=== PATIENT | female | born 1940 | race Caucasian/White ===

== ENCOUNTER → 2017-01-27 | Outpatient (CLI) | payer MEDICARE ==
--- NOTE | 2017-01-27 13:19 | CT ---
EXAMINATION TYPE: CT chest wo con DATE OF EXAM: 01/27/2017 12:59 PM COMPARISON: 07/18/2015 HISTORY: Follow up nodule CT DLP: 136.[address] of the chest was performed with lung and mediastinal window settings submitted. The la ck of contrast limits evaluation of the vascular, mediastinal and parenchymal structures including th e upper abdomen. LUNGS: Again noted are small scattered subpleural nodules bilaterally. Right upper lobe nodule measur es 3.5 mm image 25. Left lower lobe nodule measures 5 mm image 25. Stable minimal right upper lobe pl eural thickening. Subpleural fibrosis noted as well. No suspicious nodules or masses identified. MEDIASTINUM/GEMA: Thoracic aorta is of normal caliber with limited evaluation given lack of contrast . The heart is enlarged. No evidence for mediastinal mass. No lymph nodes greater than 1cm. UPPER ABDOMEN: No significant abnormality is seen. OTHER: No significant other abnormality. IMPRESSION: 1. Stable pleural and subpleural nodularity. 2. 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
== END | disposition home or self-care (01) ==
LOC: RADCTMAIN 12:31
PROVIDERS: ATTEND Internal Medicine Pulmonary Disease
DX: J44.9 Chronic obstructive pulmonary disease, unspecified (principal); J84.10 Pulmonary fibrosis, unspecified; J98.4 Other disorders of lung
CPT/HCPCS: 71250

== ENCOUNTER → 2017-09-29 | Outpatient (CLI) | payer MEDICARE ==
--- NOTE | 2017-09-30 10:47 | MM ---
Reason for exam: screening (asymptomatic). Last mammogram was performed 2 years and 6 months ago. History: Patient is postmenopausal. Benign right mammotome panel of the right breast, January 24, 2012. Physical Findings: A clinical breast exam by your physician is recommended on an annual basis and results should be correlated with mammographic findings. MG 3D Screening Mammo W/Cad Bilateral CC and MLO view(s) were taken. Prior study comparison: April 04, 2015, bilateral MG screening mammo w CAD. April 11, 2014, bilateral MG screening mammo w CAD. The breast tissue is heterogeneously dense. This may lower the sensitivity of mammography. Finding: There are linear calcifications in both breasts. There is no discrete abnormality. No significant changes in finding since April 04, 2015 and April 11, 2014. ASSESSMENT: Benign, BI-RAD 2 RECOMMENDATION: Routine screening mammogram of both breasts in 1 year.
== END | disposition home or self-care (01) ==
LOC: RADMAMWWP 13:03
PROVIDERS: ATTEND Family Medicine
DX: Z12.31 Encounter for screening mammogram for malignant neoplasm of breast (principal)
CPT/HCPCS: 77063; G0202

== ENCOUNTER → 2018-01-19 | Outpatient (CLI) | payer MEDICARE ==
--- NOTE | 2018-01-19 12:56 | CT ---
EXAMINATION TYPE: CT chest wo con DATE OF EXAM: 01/19/2018 COMPARISON: Prior CT chest 01/27/2017 HISTORY: Patient has no complaints at time of service. Follow up study for multiple known lung nodul es. CT DLP: 372 mGycm. Automated Exposure Control for Dose Reduction was Utilized. TECHNIQUE: CT scan of the thorax is performed without IV contrast. FINDINGS: Lack of contrast could compromise sensitivity. LUNGS: The lungs are remarkable for interstitial changes as on prior exam, there is interlobular sept al pleural thickening present peripherally with some minimal subpleural nodularity as on prior exam. There is no pleural effusion or pneumothorax seen. The tracheobronchial tree is patent. MEDIASTINUM: Lack of IV contrast is noted to limit evaluation for mediastinal and especially hilar ad enopathy. There are no definitive greater than 1 cm hilar or mediastinal lymph nodes. No cardiomega ly or pericardial effusion is seen. OTHER: Small hiatal hernia again noted. Multiple varices present in the left upper quadrant. Calcific ations noted within the spleen. There are coronary artery calcifications present. IMPRESSION: Similar findings to prior exam, no significant interval change in patient's subpleural no dularity and there is interstitial lung disease. Comparison is suspected in left upper quadrant, conrad elate for portal hypertension. Noncontrast exam.
== END | disposition home or self-care (01) ==
LOC: RADCTMAIN 10:23
PROVIDERS: ATTEND Internal Medicine Pulmonary Disease
DX: J98.4 Other disorders of lung (principal); R91.8 Other nonspecific abnormal finding of lung field; R06.02 Shortness of breath
CPT/HCPCS: 71250

== ENCOUNTER → 2018-10-15 | Outpatient (CLI) | payer MEDICARE ==
--- NOTE | 2018-10-16 15:28 | MM ---
Reason for exam: screening (asymptomatic). Last mammogram was performed 1 year and 1 month ago. History: Patient is postmenopausal. Benign right mammotome panel of the right breast, January 24, 2012. Physical Findings: A clinical breast exam by your physician is recommended on an annual basis and results should be correlated with mammographic findings. MG Screening Mammo w CAD Bilateral CC and MLO view(s) were taken. XCCL view(s) were taken of the left breast. Prior study comparison: September 29, 2017, bilateral MG 3d screening mammo w/cad. April 04, 2015, bilateral MG screening mammo w CAD. There are scattered fibroglandular densities. Calcifications bilaterally. Focal asymmetry left MLO inferior, new. This finding is changed when compared with previous exams. ASSESSMENT: Incomplete: need additional imaging evaluation, BI-RAD 0 RECOMMENDATION: Special view mammogram of the left breast. If lesion persists on supplemental views, image directed ultrasound is recommended. [facility] will attempt to contact patient to return for supplemental views and ultrasound if indicated.
== END | disposition home or self-care (01) ==
LOC: RADMAMWWP 12:26
PROVIDERS: ATTEND Family Medicine
DX: Z12.31 Encounter for screening mammogram for malignant neoplasm of breast (principal)
CPT/HCPCS: 77067

== ENCOUNTER → 2018-11-13 | Outpatient (CLI) | payer MEDICARE ==
--- NOTE | 2018-11-15 09:02 | MM ---
Reason for exam: additional evaluation requested from abnormal screening. Last mammogram was performed 1 month ago. History: Patient is postmenopausal. Benign right mammotome panel of the right breast, January 24, 2012. Physical Findings: Nurse did not find any significant physical abnormalities on exam. MG 3D Work Up W/Cad LT ML, spot compression MLO, and spot compression ML view(s) were taken of the left breast. Prior study comparison: October 15, 2018, bilateral MG screening mammo w CAD. September 29, 2017, bilateral MG 3d screening mammo w/cad. There are scattered fibroglandular densities. There are benign-appearing left breast calcifications. The previously seen left lower inner quadrant focal asymmetry relates to a tortures overlapping vessel on additional views. These results were verbally communicated with the patient and result sheet given to the patient on 11/13/18. ASSESSMENT: Benign, BI-RAD 2 RECOMMENDATION: Return to routine screening mammogram schedule for both breasts.
== END | disposition home or self-care (01) ==
LOC: RADMAMWWP 08:48
PROVIDERS: ATTEND Family Medicine
DX: R92.8 Other abnormal and inconclusive findings on diagnostic imaging of breast (principal)
CPT/HCPCS: 77065; G0279; 77061

== ENCOUNTER → 2019-02-12 | Outpatient (CLI) | payer MEDICARE ==
[2019-02-12 10:05] LABS: Blood Urea Nitrogen 19 mg/dL (7-17)
--- NOTE | 2019-02-12 11:39 | CT ---
EXAMINATION TYPE: CT abdomen pelvis w con DATE OF EXAM: 02/12/2019 HISTORY: Abdominal pain, constipation CT DLP: 410.40mGycm Automated Exposure Control for Dose Reduction was Utilized. CONTRAST: CT scan of the abdomen and pelvis is performed with IV Contrast, patient injected with 100 ml mL of I sovue 300. COMPARISON: None. FINDINGS: LUNG BASES: Early fibrosis is seen in a subpleural reticulation within the lung bases. Mild emphysema tous changes are also present. Severe coronary calcifications are seen. LIVER/GB: The liver is of unremarkable enhancement and morphology. No intrahepatic biliary ductal dil atation is seen. Gallbladder appears surgically absent. PANCREAS: No significant abnormality is seen. SPLEEN: There is a punctate benign splenic granuloma. ADRENALS: No significant abnormality is seen. KIDNEYS: Bilateral extrarenal pelvises sees are seen. Kidneys enhance and excrete symmetrically witho ut hydronephrosis. BOWEL: Large degree fecal stasis is present. No evidence of dilated bowel to suggest obstruction. The re is some narrowing in caliber of the descending colon that may relate to colonic spasm as no obstru ction is seen however if there is further concern colonoscopy could be performed.. UTERUS/ADNEXA: Surgically absent. LYMPH NODES: No greater than 1cm abdominal or pelvic lymph nodes are appreciated. OSSEOUS STRUCTURES: Sclerotic lesion of the right femoral head although is nonspecific likely relates to benign bone island. This appears solitary. Facet arthropathy is seen throughout the spine. Grade 1 anterolisthesis is seen of L4 on L5. No pars interarticularis defects are noted. This is likely due to facet hypertrophy. Schmorl's node deformity is seen of L2 and L1 with mild compression deformitie s. The compression deformity of L2 is stable from 2014. L1 has occurred in the interim. OTHER: Small fat filled supraumbilical hernia is seen approximately 2 cm above the umbilicus with a w kailee neck measuring 1.7 cm. IMPRESSION: 1. Large burden colonic fecal stasis in keeping with the patient's provided history of constipation. Additionally there is focal narrowing of the descending colon in a long segment that may relate to co lonic spasm although colonoscopy could be considered if not recently performed. 2. Compression deformities of L1 and L2. L2 is stable from 2014 and L1 has occurred in the interim. C orrelate with point tenderness.
== END | disposition home or self-care (01) ==
LOC: RADCTMAIN 09:17
PROVIDERS: ATTEND Family Medicine
DX: K56.699 Other intestinal obstruction unspecified as to partial versus complete obstruction (principal); R19.5 Other fecal abnormalities; K43.6 Other and unspecified ventral hernia with obstruction, without gangrene; Z88.2 Allergy status to sulfonamides; Z88.8 Allergy status to other drugs, medicaments and biological substances
CPT/HCPCS: 82565; 84520; 74177; 36415; Q9967

== ENCOUNTER 2019-04-07 07:36 | Day surgery (SDC) | payer MEDICARE ==
[2019-04-05 11:45] VITALS: BMI 22.4
[~2019-04-07 07:36] MED LIST: LACTATED RINGERS 1,000 ML IV SCH
[2019-04-07 08:25] VITALS: TEMP 97.2
[2019-04-07 08:32] LABS: Glucose,Whole Blood 84 mg/dL (75-99)
[2019-04-07] MEDS ORDERED: PROPOFOL 10 MG/ML 20 ML VIAL IV ONE (08:34)
[2019-04-07 08:58] VITALS: RESP 16
[2019-04-07 09:16] VITALS: BP 103/68; PULSE 75
--- NOTE | 2019-04-07 09:26 | P.PCN ---
Date of Procedure: 04/07/19 Procedure(s) Performed: BRIEF HISTORY: Patient is a 78-year-old pleasant white female, scheduled for an elective colonoscopy as a part of evaluation change in bowel habits for the last 3 months duration. She is having alternating diarrhea and constipation. PROCEDURE PERFORMED: Colonoscopy with biopsy. PREOPERATIVE DIAGNOSIS: Change in bowel habits. IV sedation per Anesthesia. PROCEDURE: After informed consent was obtained, the patient, was brought into the endoscopy unit. IV sedation was administered by Anesthesia under continuous monitoring. Digital rectal examination was normal. Initially the Olympus CF-160 flexible video colonoscope was then inserted in the rectum, gradually advanced into the cecum without any difficulty. Careful examination was performed as the scope was gradually being withdrawn. Ileocecal valve and the appendiceal orifice were visualized and appeared normal. Prep was excellent. Mucosa of the cecum, ascending colon, transverse colon, descending colon, sigmoid colon, and rectum appeared normal. Retroflexion was performed in the rectum and no lesions were seen. Random biopsies were done from ascending and descending colon to rule out metastatic/collagenous colitis. The patient tolerated the procedure well. IMPRESSION: Normal-appearing colon from rectum to cecum with no evidence of colitis or colorectal neoplasia. RECOMMENDATIONS: Findings of this examination were discussed with the patient as well as a family. She was advised to follow up the biopsy results. She was advised to start on MiraLAX [id number] as needed and increase fiber in the diet. She'll be seen in office in a month..
== END 2019-04-07 09:35 | disposition home or self-care (01) ==
LOC: ORWHC2ENDO 07:36
PROVIDERS: ATTEND Internal Medicine Gastroenterology
DX: A04.72 Enterocolitis due to Clostridium difficile, not specified as recurrent (principal); Z88.2 Allergy status to sulfonamides; I10 Essential (primary) hypertension; E78.5 Hyperlipidemia, unspecified; Z79.899 Other long term (current) drug therapy
CPT/HCPCS: 88305; 45380; J2704

== ENCOUNTER → 2019-11-25 | Outpatient (CLI) | payer MEDICARE ==
--- NOTE | 2019-11-25 13:17 | CT ---
EXAMINATION TYPE: CT abdomen pelvis w con DATE OF EXAM: 11/25/2019 COMPARISON: February 12, 2019 HISTORY: Generalized abdominal pain, constipation. CT DLP: 790 mGycm CONTRAST: CT scan of the abdomen and pelvis is performed with Oral Contrast and with IV Contrast, patient injec justo with 80 mL of Isovue M300. FINDINGS: LUNG BASES-: No visible nodule. No infiltrate. LIVER/GB: No calcified gallstones. No space occupying hepatic lesion. Biliary tree is of normal ca liber. PANCREAS: No inflammation. No distinct mass. SPLEEN: No splenic enlargement. No lesion seen. Perisplenic varices noted. ADRENALS: No nodule. No thickening. KIDNEYS/BLADDER: No hydronephrosis. No nephrolithiasis. No distinct renal mass. Urinary bladder g rossly unremarkable. BOWEL: Normal appendix. Normal bowel caliber. No inflammation. GENITAL ORGANS: No gross abnormality. LYMPH NODES: No greater than 1cm abdominal or pelvic lymph nodes are appreciated. AORTA: No significant abnormality. OSSEOUS STRUCTURES: Chronic compression deformities are seen throughout the upper lumbar spine. Degen erative changes noted as well. OTHER: Fat-containing umbilical hernia measuring 3.4 cm. IMPRESSION: 1. Fat-containing umbilical hernia measuring 3.4 cm. 2.Perisplenic varices noted.
== END | disposition home or self-care (01) ==
LOC: RADCTMAIN 11:16
PROVIDERS: ATTEND Family Medicine
DX: K42.9 Umbilical hernia without obstruction or gangrene (principal); I86.8 Varicose veins of other specified sites; E11.9 Type 2 diabetes mellitus without complications; Z88.2 Allergy status to sulfonamides; Z88.8 Allergy status to other drugs, medicaments and biological substances
CPT/HCPCS: 82565; 84520; 74177; 36415; Q9967 ×2

== ENCOUNTER → 2019-12-01 | Outpatient (CLI) | payer MEDICARE ==
--- NOTE | 2019-12-02 11:32 | MM ---
Reason for exam: screening (asymptomatic). Last mammogram was performed 1 year and 1 month ago. History: Patient is postmenopausal. Benign right mammotome panel of the right breast, January 24, 2012. Physical Findings: A clinical breast exam by your physician is recommended on an annual basis and results should be correlated with mammographic findings. MG 3D Screening Mammo W/Cad Bilateral CC and MLO view(s) were taken. Prior study comparison: November 13, 2018, left breast MG 3d work up w/cad LT. October 15, 2018, bilateral MG screening mammo w CAD. There are scattered fibroglandular densities. Finding: There are typically benign round, linear calcifications in the anterior position of both breasts. Previous mammotome biopsy in the right breast. There is no discrete abnormality. ASSESSMENT: Benign, BI-RAD 2 RECOMMENDATION: Routine screening mammogram of both breasts in 1 year.
== END | disposition home or self-care (01) ==
LOC: RADMAMWWP 13:27
PROVIDERS: ATTEND Family Medicine
DX: Z12.31 Encounter for screening mammogram for malignant neoplasm of breast (principal)
CPT/HCPCS: 77063; 77067

== ENCOUNTER → 2019-12-03 | Outpatient (CLI) | payer MEDICARE ==
[2019-12-03 11:52] LABS: Creatinine 24 Hour,Urine 569.5 mg/24hr (800.0-1800.0)
[2019-12-03 12:20] LABS: Total Volume 24 Hour,Urine 2125 mls (250-2400)
[2019-12-03 12:27] LABS: Total Protein 24 Hour,Urine 383 mg/24hr (42.0-225.0)
== END | disposition home or self-care (01) ==
LOC: LABWHC1 09:10
PROVIDERS: ATTEND Family Medicine
DX: N18.3 Chronic kidney disease, stage 3 (moderate) (principal)
CPT/HCPCS: 36415; 81050; 82575; 84156

== ENCOUNTER → 2019-12-09 | Outpatient (CLI) | payer MEDICARE ==
--- NOTE | 2019-12-09 15:19 | US ---
EXAMINATION TYPE: US kidneys/renal and bladder DATE OF EXAM: 12/09/2019 COMPARISON: NONE CLINICAL HISTORY: N18.3 Chronic kidney disease stage III. EXAM MEASUREMENTS: Right Kidney: 9.6 x 4.8 x 4.8 cm Left Kidney: 9.7 x 4.5 x 4.6 cm Right Kidney: No hydronephrosis or masses seen Left Kidney: Superior pole obscured by bowel gas, no hydro or masses seen Bladder: wnl There is no evidence for hydronephrosis at this point in time. No nephrolithiasis is seen. No jayda s are identified. The urinary bladder is anechoic. Bilateral ureteral jets are seen. IMPRESSION: Obscuration of the right superior pole the kidney by overlying bowel gas. In the remainde r of the kidneys there is no evidence of hydronephrosis, nephrolithiasis or suspicious mass.
== END | disposition home or self-care (01) ==
LOC: RADUSWWP 14:01
PROVIDERS: ATTEND Family Medicine
DX: N18.3 Chronic kidney disease, stage 3 (moderate) (principal); Z88.2 Allergy status to sulfonamides; Z88.8 Allergy status to other drugs, medicaments and biological substances
CPT/HCPCS: 76770

== ENCOUNTER 2019-12-13 06:58 | Day surgery (SDC) | payer MEDICARE ==
[2019-12-08 16:29] VITALS: BMI 20.7
[2019-12-13 07:16] VITALS: TEMP 97.7
[2019-12-13 07:28] LABS: Glucose,Whole Blood 158 mg/dL (75-99)
[2019-12-13] MEDS ORDERED: PROPOFOL 10 MG/ML 20 ML VIAL IV ONE (07:32)
[2019-12-13] MEDS ORDERED: LIDOCAINE 1% INJ 10MG/ML (20 ML MDV) ONE (07:32)
--- NOTE | 2019-12-13 08:01 | P.PCN ---
Date of Procedure: 12/13/19 Description of Procedure: BRIEF HISTORY: Patient is a 79-year-old female presents for outpatient esophagogastroduodenoscopy for evaluation of symptoms of abdominal pain and unintentional weight loss. She reports decreased oral intake and some weight loss recently. She does have a history of NSAID use. PROCEDURE PERFORMED: Esophagogastroduodenoscopy with biopsy. PREOPERATIVE DIAGNOSIS: Abdominal pain, unintentional weight loss. ESTIMATED BLOOD LOSS: Minimal. IV sedation per anesthesia. PROCEDURE: After informed consent was obtained, the patient was brought into the endoscopy unit. IV sedation was administered by Anesthesia under continuous monitoring. Initially the Olympus GIF-190 video endoscope was inserted into the mouth. Esophagus intubated without any difficulty. It was gradually advanced into the stomach and duodenum and carefully examined. The bulb and the second part of the duodenum appeared normal, with biopsies taken to rule out celiac sprue. The scope at this time was withdrawn to the stomach, adequately insufflated with air, and upon careful examination, mucosa of the antrum, body, cardia and the fundus appeared normal, except for some mild scattered erythema in the antrum and body suggestive of mild gastritis with biopsies taken. The scope was then withdrawn into the esophagus. The GE junction was located at 33 cm from the incisors, with biopsies of the GE junction taken to rule out reflux esophagitis. A small 1 cm hiatal hernia noted. The esophagus appeared normal. There were no erosions or ulcerations seen and the patient tolerated the procedure well. IMPRESSION: 1. Mild gastritis antrum and body, biopsied. 2. Biopsies of the duodenum and GE junction. 3. No ulcers, masses or other pathology noted. RECOMMENDATIONS: The findings of this examination were discussed with the patient and her sister. Okay to resume diet. Okay to resume medications. Await pathology from biopsies..
[2019-12-13 08:30] VITALS: BP 188/78; PULSE 68; RESP 18
== END 2019-12-13 08:44 | disposition home or self-care (01) ==
LOC: ORWHC2ENDO 06:58
PROVIDERS: ATTEND Internal Medicine
DX: K29.50 Unspecified chronic gastritis without bleeding (principal); K20.0 Eosinophilic esophagitis; K44.9 Diaphragmatic hernia without obstruction or gangrene; E11.9 Type 2 diabetes mellitus without complications; E78.5 Hyperlipidemia, unspecified; K08.409 Partial loss of teeth, unspecified cause, unspecified class; M19.90 Unspecified osteoarthritis, unspecified site; Z88.8 Allergy status to other drugs, medicaments and biological substances; Z88.2 Allergy status to sulfonamides; Z79.899 Other long term (current) drug therapy; Z90.49 Acquired absence of other specified parts of digestive tract; Z90.710 Acquired absence of both cervix and uterus; Z96.651 Presence of right artificial knee joint; Z98.42 Cataract extraction status, left eye; Z98.41 Cataract extraction status, right eye; Z98.890 Other specified postprocedural states; Z80.1 Family history of malignant neoplasm of trachea, bronchus and lung
CPT/HCPCS: 88305; 43239; J2001; J2704

== ENCOUNTER 2020-04-04 08:17 | Emergency (ER) | payer MEDICARE ==
[2020-04-04 08:22] VITALS: RESP 18; TEMP 98
[2020-04-04 09:13] LABS: Basophils # (A) 0.1 k/uL (0-0.2); Basophils % (A) 1 %; Eosinophils # (A) 0.1 k/uL (0-0.7); Eosinophils % (A) 1 %; HCT 38.7 % (34.0-46.0); HGB 12.6 gm/dL (11.4-16.0); Lymphocytes # (A) 1.4 k/uL (1.0-4.8); Lymphocytes % (A) 19 %; MCH 28.5 pg (25.0-35.0); MCHC 32.7 g/dL (31.0-37.0); MCV 87.3 fL (80.0-100.0); Mean Platelet Volume 7.4; Monocytes # (A) 0.3 k/uL (0-1.0); Monocytes % (A) 4 %; Neutrophils # (A) 5.6 k/uL (1.3-7.7); Neutrophils % (A) 75 %; Platelet Count 243 k/uL (150-450); RBC 4.43 m/uL (3.80-5.40); RDW 12.9 % (11.5-15.5); WBC 7.5 k/uL (3.8-10.6)
[2020-04-04 09:29] LABS: Albumin 4.3 g/dL (3.5-5.0); Calcium 9.8 mg/dL (8.4-10.2); Potassium 4.2 mmol/L (3.5-5.1); Total Bilirubin 0.7 mg/dL (0.2-1.3); Total Protein 7.9 g/dL (6.3-8.2)
--- NOTE | 2020-04-04 09:35 | XR ---
EXAMINATION TYPE: XR chest 2V DATE OF EXAM: 04/04/2020 COMPARISON: 07/30/2010 INDICATION: Elevated blood pressure TECHNIQUE: Frontal and lateral views of the chest are obtained. FINDINGS: The heart size is normal. The pulmonary vasculature is normal. The lungs are clear. IMPRESSION: 1. No acute pulmonary process.
--- NOTE | 2020-04-04 09:43 | CT ---
EXAMINATION TYPE: CT brain wo con DATE OF EXAM: 04/04/2020 COMPARISON: None INDICATION: ZAPIEN, hypertension DLP: 965.8 mGycm, Automated exposure control for dose reduction was used. CONTRAST: None CT of the brain is performed utilizing 3 mm thick sections through the posterior fossa and 3 mm thick sections through the remaining calvarium. Study is performed within 24 hours of arrival to the hosp [facility]. No abnormal hyperdensity is present to suggest an acute intracranial hemorrhage. No mass lesion is evident. No acute infarcts are evident. There is patchy periventricular white matter hypodensity, likely on th e basis of chronic white matter ischemic changes. Ventricles and sulci are mildly prominent for the patient age. There is a small area of mucosal thickening opacifying the posterior left ethmoid air cell. Remaining paranasal sinuses and mastoid air cells are clear. IMPRESSIONS: 1. Atrophy with chronic appearing white matter ischemic changes.
[2020-04-04] MEDS ORDERED: amLODIPine 5 MG TAB PO STA (09:48)
--- NOTE | 2020-04-04 09:50 | ED ---
Recheck HPI - General Chief Complaint: Recheck/Abnormal Lab/Rx Stated Complaint: High BP Time Seen by Provider: 04/04/20 08:32 Source: patient Mode of arrival: wheelchair Limitations: no limitations - History of Present Illness Initial Comments: 79yp female with history of HTN presenting today for chief complaint of elevated blood pressure. States BP elevated this AM. Did not take BP medications. patient states she has a slight headache-otherwise no complaints. Denies visual changes or weakness. Patient deficits chest pain shortness of breath, nausea, abdominal or back pain. Patient appears well on arrival, no acute distress. - Related Data Home Medications Medication Instructions Recorded Confirmed Benazepril HCl 10 mg PO DAILY 09/18/15 04/04/20 Simvastatin 20 mg PO HS 09/18/15 04/04/20 Allergies Allergy/AdvReac Type Severity Reaction Status Date / Time risedronate sodium Allergy Itching Verified 04/04/20 09:41 [From Actonel] Sulfa (Sulfonamide Allergy Itching Verified 04/04/20 09:41 Antibiotics) Review of Systems ROS Statement: Those systems with pertinent positive or pertinent negative responses have been documented in the HPI. ROS Other: All systems not noted in ROS Statement are negative. Past Medical History Past Medical History: Diabetes Mellitus, Hyperlipidemia, Hypertension Additional Past Medical History / Comment(s): Pulmonary nodules on lung, diet controlled diabetic, constipation. Recent infection, poss UTI, po AB Rx completed. History of Any Multi-Drug Resistant Organisms: MRSA Date of last positivie culture/infection: 2009 MDRO Source:: BUTTOCK Past Surgical History: Appendectomy, Cholecystectomy, Hysterectomy, Joint Replacement Additional Past Surgical History / Comment(s): RT KNEE REPLACEMENT. Colonoscopy. Exc bilat Cataracts Past Anesthesia/Blood Transfusion Reactions: No Reported Reaction Past Psychological History: No Psychological Hx Reported Smoking Status: Never smoker Past Alcohol Use History: None Reported Past Drug Use History: None Reported - Past Family History Brother(s) Family Medical History: Cancer Additional Family Medical History / Comment(s): 3 BROTHERS HAD LUNG CA Sister(s) Family Medical History: Cancer Additional Family Medical History / Comment(s): SKIN General Exam - General Exam Comments Initial Comments: General: The patient is awake and alert, in no distress Eye: +3 mm pupils are equal, round and reactive to light, extra-ocular movements are intact. No nystagmus. There is normal conjunctiva bilaterally. No signs of icterus. Ears, nose, mouth and throat: There are moist mucous membranes and no oral lesions. Neck: The neck is supple, there is no tenderness or JVD. Cardiovascular: There is a regular rate and rhythm. No murmur, rub or gallop is appreciated. Respiratory: Lungs are clear to auscultation, respirations are non-labored, breath sounds are equal. No wheezes, stridor, rales, or rhonchi. Gastrointestinal: Soft, non-distended, non-tender abdomen without masses or organomegaly noted. There is no rebound or guarding present. Musculoskeletal: Normal ROM, no tenderness. Strength 5/5. Sensation intact. Radial pulses equal bilaterally 2+. Neurological: A&O x 3. CN II-XII intact, There are no obvious motor or sensory deficits. Coordination appears grossly intact. Speech is normal. Skin: Skin is warm and dry and no rashes or lesions are noted. No LE swelling. Psychiatric: Cooperative, appropriate mood & affect, normal judgment. Limitations: no limitations Course Vital Signs 04/04/20 04/04/20 04/04/20 08:19 08:37 09:53 Temperature 98 F Pulse Rate 74 68 62 Respiratory 18 18 18 Rate Blood Pressure 191/72 183/76 180/70 O2 Sat by Pulse 98 98 98 Oximetry Medical Decision Making - Medical Decision Making CXR (-). Trop (-) EKG not acute findings. CT brain(-). Kidney function within acceptable limits. Patient has no neurological deficits. Patient BP not within urgent range. Recommend d/c wtih oral medications,and PCP f/u. Return parameters, symptoms discussed. Pt discharged appearing well. - Lab Data Result diagrams: 04/04/20 08:58 04/04/20 08:58 Lab Results 04/04/20 04/04/20 04/04/20 Range/Units 08:58 08:58 08:58 WBC 7.5 (3.8-10.6) k/uL RBC 4.43 (3.80-5.40) m/uL Hgb 12.6 (11.4-16.0) gm/dL Hct 38.7 (34.0-46.0) % MCV 87.3 (80.0-100.0) fL MCH 28.5 (25.0-35.0) pg MCHC 32.7 (31.0-37.0) g/dL RDW 12.9 (11.5-15.5) % Plt Count 243 (150-450) k/uL Neutrophils % 75 % Lymphocytes % 19 % Monocytes % 4 % Eosinophils % 1 % Basophils % 1 % Neutrophils # 5.6 (1.3-7.7) k/uL Lymphocytes # 1.4 (1.0-4.8) k/uL Monocytes # 0.3 (0-1.0) k/uL Eosinophils # 0.1 (0-0.7) k/uL Basophils # 0.1 (0-0.2) k/uL Sodium 139 (137-145) mmol/L Potassium 4.2 (3.5-5.1) mmol/L Chloride 102 (98-107) mmol/L Carbon Dioxide 29 (22-30) mmol/L Anion Gap 8 mmol/L BUN 21 H (7-17) mg/dL Creatinine 0.85 (0.52-1.04) mg/dL Est GFR (CKD-EPI)AfAm 76 (>60 ml/min/1.73 sqM) Est GFR (CKD-EPI)NonAf 66 (>60 ml/min/1.73 sqM) Glucose 152 H (74-99) mg/dL Calcium 9.8 (8.4-10.2) mg/dL Total Bilirubin 0.7 (0.2-1.3) mg/dL AST 27 (14-36) U/L ALT 14 (4-34) U/L Alkaline Phosphatase 72 (38-126) U/L Troponin I <0.012 (0.000-0.034) ng/mL Total Protein 7.9 (6.3-8.2) g/dL Albumin 4.3 (3.5-5.0) g/dL Disposition Clinical Impression: Elevated BP without diagnosis of hypertension, Headache Disposition: HOME SELF-CARE Condition: Good Instructions (If sedation given, give patient instructions): Low-Sodium Diet (ED), Hypertension (ED) Additional Instructions: Please use medication as discussed. Please follow-up with family doctor in the next 2 days. Please return to emergency room if the symptoms increase or worsen or for any other concerns. Is patient prescribed a controlled substance at d/c from ED?: No Referrals: Isak Oneil MD [Primary Care Provider] - 1-2 days Time of Disposition: 09:49
[2020-04-04 09:57] VITALS: BP 180/70; PULSE 62
== END 2020-04-04 09:55 | disposition home or self-care (01) ==
LOC: EC 08:17
DX: R03.0 Elevated blood-pressure reading, without diagnosis of hypertension (principal); R07.9 Chest pain, unspecified; R06.02 Shortness of breath; R11.0 Nausea; R51 Headache; I10 Essential (primary) hypertension; E78.5 Hyperlipidemia, unspecified; E11.9 Type 2 diabetes mellitus without complications; Z79.899 Other long term (current) drug therapy; Z88.2 Allergy status to sulfonamides; Z88.8 Allergy status to other drugs, medicaments and biological substances; Z86.14 Personal history of Methicillin resistant Staphylococcus aureus infection; Z90.49 Acquired absence of other specified parts of digestive tract; Z96.651 Presence of right artificial knee joint
CPT/HCPCS: 36415; 70450; 71046; 80053; 84484; 85025; 93005; 99284

== ENCOUNTER → 2020-04-25 | Outpatient (CLI) | payer MEDICARE ==
--- NOTE | 2020-04-25 09:18 | CT ---
EXAMINATION TYPE: CT chest wo con DATE OF EXAM: 04/25/2020 COMPARISON: 01/19/2018 HISTORY: Pulmonary nodule CT DLP: 121.[address] of the chest was performed with lung and mediastinal window settings submitted. The la ck of contrast limits evaluation of the vascular, mediastinal and parenchymal structures including th e upper abdomen. LUNGS: There is progressive subpleural fibrosis bilaterally when compared to the prior examination. S table pleural-based nodular densities are noted within the left upper lobe measuring approximately 4 mm each seen best on image 29. Additional scattered sub-5 mm pulmonary nodules are seen bilaterally a ll of which remain stable. No suspicious pulmonary nodules are seen at this time. MEDIASTINUM/GEMA: Thoracic aorta is of normal caliber with limited evaluation given lack of contrast . The heart is not enlarged. No evidence for mediastinal mass. No lymph nodes greater than 1cm. UPPER ABDOMEN: No significant abnormality is seen. OTHER: No significant other abnormality. IMPRESSION: 1. Mildly progressive subpleural fibrosis noted bilaterally. 2. Stable pleural-based nodules back over 2 years indicating benign process.
== END | disposition home or self-care (01) ==
LOC: RADCTMAIN 08:42
PROVIDERS: ATTEND Internal Medicine Pulmonary Disease
DX: J94.1 Fibrothorax (principal); R91.8 Other nonspecific abnormal finding of lung field; Z88.2 Allergy status to sulfonamides
CPT/HCPCS: 71250

== ENCOUNTER 2020-07-10 09:34 | Emergency (ER) | payer MEDICARE ==
[2020-07-10 09:40] VITALS: TEMP 98.3
[2020-07-10 10:03] VITALS: RESP 16
--- NOTE | 2020-07-10 10:46 | ED ---
Recheck HPI - General Chief Complaint: Recheck/Abnormal Lab/Rx Stated Complaint: High BP Time Seen by Provider: 07/10/20 09:52 Source: patient Mode of arrival: ambulatory Limitations: no limitations - History of Present Illness Initial Comments: Patient is a 79-year-old female presenting to emergency Department with complaints of elevated blood pressure since this morning. Patient is taking benazipil twice daily. Patient states she checks her blood pressure in the morning before her medication, then takes it again after her medications and then another 2-3 times each day. Patient states she's never had issues with her blood pressure into the last few months. She is being monitored by Dr. Oneil. Patient denies any other symptoms today including no chest pain, shortness of breath, dizziness, headache, nausea or vomiting. Patient states she feels fine but has been monitoring her blood pressure and was concerned when it did not go down with her medications this morning. He recent fever, chills, changes in medication. She has no further complaints at this time. Upon arrival to the ER, patient's blood pressure is 184/68, rest of vitals are normal. - Related Data Home Medications Medication Instructions Recorded Confirmed Benazepril HCl 10 mg PO DAILY 09/18/15 04/04/20 Simvastatin 20 mg PO HS 09/18/15 04/04/20 Allergies Allergy/AdvReac Type Severity Reaction Status Date / Time risedronate sodium Allergy Itching Verified 07/10/20 09:40 [From Actonel] Sulfa (Sulfonamide Allergy Itching Verified 07/10/20 09:40 Antibiotics) Review of Systems ROS Statement: Those systems with pertinent positive or pertinent negative responses have been documented in the HPI. ROS Other: All systems not noted in ROS Statement are negative. Past Medical History Past Medical History: Diabetes Mellitus, Hyperlipidemia, Hypertension Additional Past Medical History / Comment(s): Pulmonary nodules on lung, diet controlled diabetic, constipation. Recent infection, poss UTI, po AB Rx completed. History of Any Multi-Drug Resistant Organisms: MRSA Date of last positivie culture/infection: 2009 MDRO Source:: BUTTOCK Past Surgical History: Appendectomy, Cholecystectomy, Hysterectomy, Joint Replacement Additional Past Surgical History / Comment(s): RT KNEE REPLACEMENT. Colonoscopy. Exc bilat Cataracts Past Anesthesia/Blood Transfusion Reactions: No Reported Reaction Past Psychological History: No Psychological Hx Reported Smoking Status: Never smoker Past Alcohol Use History: None Reported Past Drug Use History: None Reported - Past Family History Brother(s) Family Medical History: Cancer Additional Family Medical History / Comment(s): 3 BROTHERS HAD LUNG CA Sister(s) Family Medical History: Cancer Additional Family Medical History / Comment(s): SKIN General Exam - General Exam Comments Initial Comments: GENERAL: Patient is well-developed and well-nourished. Patient is nontoxic and in no acute distress. HEAD: Atraumatic, normocephalic. EYES: Pupils equal round and reactive to light, extraocular movements intact, sclera anicteric, conjunctiva are normal. Eyelids were unremarkable. ENT: TMs normal, nares patent, oropharynx clear without exudates. Moist mucous membranes. NECK: Normal range of motion, supple without lymphadenopathy or JVD. LUNGS: Unlabored respirations. Breath sounds clear to auscultation bilaterally and equal. No wheezes rales or rhonchi. HEART: Regular rate and rhythm without murmurs, rubs or gallops. ABDOMEN: Soft, nontender, normoactive bowel sounds. No guarding, no rebound. No masses appreciated. : Deferred MUSCULOSKELETAL: Normal extremities with adequate strength and normal range of motion, no pitting or edema. No clubbing or cyanosis. NEUROLOGICAL: Patient is alert and oriented x 3. Motor and sensory are also intact. Cranial nerves II through XII grossly intact. Symmetrical smile. Normal speech, normal gait. PSYCH: Normal mood, normal affect. SKIN: Warm, Dry, normal turgor, no rashes or lesions noted. Limitations: no limitations Course Vital Signs 07/10/20 07/10/20 07/10/20 09:36 10:03 10:30 Temperature 98.3 F Pulse Rate 67 60 58 L Respiratory 18 16 16 Rate Blood Pressure 184/68 172/73 166/71 O2 Sat by Pulse 98 98 99 Oximetry 07/10/20 10:50 Temperature Pulse Rate Respiratory Rate Blood Pressure 167/76 O2 Sat by Pulse Oximetry Medical Decision Making - Medical Decision Making Patient is a 79-year-old female here for elevated blood pressure since this morning. She has no other complaints today, her exam is unremarkable. Patient's blood pressure upon arrival was 184/68. Patient admits that she checks her blood pressure at least 4-6 times daily. Patient states she has never had issues with her blood pressure until last few months and it has been closely monitoring it since then. Had a long discussion with the patient regarding only checking her blood pressure once maybe twice a day. I also recommended not taking half of her medication throughout the day as well. I told her to stick with the directions that are on her bottle. We also discussed that checking her blood pressure more often can cause her anxiety which can increase her blood pressure. Patient's blood pressure is rechecked and is 172/73. I discussed with patient that she is stable for discharge. 2 on the monitor her blood pressure once or twice daily. Follow up with PCP. Case discussed with Dr. Fallon. Disposition Clinical Impression: Hypertension Disposition: HOME SELF-CARE Condition: Stable Instructions (If sedation given, give patient instructions): Hypertension (ED) Additional Instructions: Please return to the Emergency Department if symptoms worsen or any other concerns. Recommended only checking a blood pressure in the morning and in the evening. Follow-up with PCP as discussed. Is patient prescribed a controlled substance at d/c from ED?: No Referrals: Isak Oneil MD [Primary Care Provider] - 1-2 days
[2020-07-10 10:51] VITALS: BP 167/76
[2020-07-10 10:52] VITALS: PULSE 58
== END 2020-07-10 10:52 | disposition home or self-care (01) ==
LOC: EC 09:34
DX: I10 Essential (primary) hypertension (principal); E78.5 Hyperlipidemia, unspecified; E11.9 Type 2 diabetes mellitus without complications; Z79.899 Other long term (current) drug therapy; Z88.2 Allergy status to sulfonamides; Z88.8 Allergy status to other drugs, medicaments and biological substances; Z98.42 Cataract extraction status, left eye; Z98.41 Cataract extraction status, right eye; Z96.651 Presence of right artificial knee joint; Z86.14 Personal history of Methicillin resistant Staphylococcus aureus infection
CPT/HCPCS: 99283

== ENCOUNTER 2021-04-24 16:46 | Emergency (ER) | payer MEDICARE ==
[2021-04-24] MEDS ORDERED: IBUPROFEN 400 MG TAB PO STA (19:07)
--- NOTE | 2021-04-24 19:07 | ED ---
Fall HPI - General Chief Complaint: Fall Stated Complaint: fall Source: patient, family Mode of arrival: wheelchair - History of Present Illness Initial Comments: 80-year-old white female, alert and oriented 4 and well-appearing, presents to the emergency room with family member after missing a step and falling on her right hand and right knee. Patient is complaining of right ankle right lower leg and right knee pain worse with weight bearing weight. Patient also complaining of right hand pain and states she bit her upper lip but did not hit her head did not lose consciousness. Patient denies any neck pain or head pain. She states that this occurred about 345 this afternoon. Patient has a history of diabetes, hypertension surgical history of cholecystectomy, appendectomy and hysterectomy. Patient is a nonsmoker. MD Complaint: fall -: hour(s) (3) Fall From: standing When Fall Occurred: 1-3 hours [employer] Fall Witnessed: yes, by family Place Fall Occurred: home Loss of Consciousness: none Prolonged Down Time?: no Symptoms Prior to Fall: none Location - Extremities: Right: Hand, Knee, Leg, Ankle Severity scale (1-10): 8 - Related Data Home Medications Medication Instructions Recorded Confirmed Benazepril HCl 10 mg PO DAILY 09/18/15 04/04/20 Simvastatin 20 mg PO HS 09/18/15 04/04/20 Allergies Allergy/AdvReac Type Severity Reaction Status Date / Time risedronate sodium Allergy Itching Verified 04/24/21 16:59 [From Actonel] Sulfa (Sulfonamide Allergy Itching Verified 04/24/21 16:59 Antibiotics) Review of Systems ROS Statement: Those systems with pertinent positive or pertinent negative responses have been documented in the HPI. ROS Other: All systems not noted in ROS Statement are negative. Past Medical History Past Medical History: Diabetes Mellitus, Hyperlipidemia, Hypertension Additional Past Medical History / Comment(s): Pulmonary nodules on lung, diet controlled diabetic, constipation. Recent infection, poss UTI, po AB Rx completed. History of Any Multi-Drug Resistant Organisms: MRSA Date of last positivie culture/infection: 2009 MDRO Source:: BUTTOCK Past Surgical History: Appendectomy, Cholecystectomy, Hysterectomy, Joint Replacement Additional Past Surgical History / Comment(s): RT KNEE REPLACEMENT. Colonoscopy. Exc bilat Cataracts Past Anesthesia/Blood Transfusion Reactions: No Reported Reaction Past Psychological History: No Psychological Hx Reported Smoking Status: Never smoker Past Alcohol Use History: None Reported Past Drug Use History: None Reported - Past Family History Brother(s) Family Medical History: Cancer Additional Family Medical History / Comment(s): 3 BROTHERS HAD LUNG CA Sister(s) Family Medical History: Cancer Additional Family Medical History / Comment(s): SKIN General Exam Limitations: no limitations General appearance: alert, in no apparent distress Head exam: Present: atraumatic, normocephalic, normal inspection Eye exam: Present: normal appearance, PERRL, EOMI. Absent: scleral icterus, conjunctival injection, periorbital swelling Pupils: Present: normal accommodation ENT exam: Present: normal exam, normal oropharynx, mucous membranes moist, other (Bruising and swelling to right inner upper lip) Neck exam: Present: normal inspection, full ROM. Absent: tenderness, meningismus, lymphadenopathy, thyromegaly Respiratory exam: Present: normal lung sounds bilaterally. Absent: respiratory distress, wheezes, rales, rhonchi, stridor, chest wall tenderness, accessory muscle use Cardiovascular Exam: Present: regular rate, normal rhythm, normal heart sounds. Absent: systolic murmur, diastolic murmur, rubs, gallop, clicks GI/Abdominal exam: Present: soft, normal bowel sounds. Absent: distended, tenderness, guarding, rebound, rigid Extremities exam: Present: full ROM, normal capillary refill. Absent: tenderness, pedal edema, joint swelling, calf tenderness Right Hand Wrist exam: Present: full ROM, tenderness, swelling, ecchymosis (No snuffbox tenderness bruising to the dorsal surface of the hand ). Absent: abrasion, laceration, deformity, crepitus, dislocation, erythema, amputation, nail avulsion, subungual hematoma Neuro motor exam: Present: wrist extension intact, thumb opposition intact, thumb IP flexion intact, thumb adduction intact, fingers 2-5 abduction intact Neurosensory exam: Present: radial nerve intact, ulnar nerve intact, median nerve intact Vascular: Present: normal capillary refill, radial pulse. Absent: vascular compromise Right Knee exam: Present: full ROM (Patient is able to fully extend and flex with some pain), tenderness (Worse with flexion), abrasion, full knee extension. Absent: ecchymosis, deformity, crepitus, dislocation, erythema, effusion Lower Leg exam: Present: normal inspection, tenderness Ankle exam: Present: full ROM, tenderness, swelling. Absent: abrasion, laceration, ecchymosis, deformity, crepitus, dislocation, erythema Foot/Toe exam: Present: normal inspection, full ROM. Absent: tenderness, swelling Neurovascular tendon exam: Present: no vascular compromise. Absent: pulse deficit, abnormal cap refill, motor deficit, sensory deficit, tendon deficit, extremity cold to touch, pallor, foot drop Back exam: Present: normal inspection, full ROM. Absent: tenderness, CVA tenderness (R), CVA tenderness (L), muscle spasm, paraspinal tenderness, vertebral tenderness, rash noted Neurological exam: Present: alert, oriented X3, CN II-XII intact Psychiatric exam: Present: normal affect, normal mood Skin exam: Present: warm, dry, intact, normal color. Absent: rash, cyanosis, diaphoretic, erythema, petechiae, pallor, mottled Course Vital Signs 04/24/21 04/24/21 04/24/21 17:00 20:33 21:20 Temperature 97.9 F 98.9 F Pulse Rate 72 73 Respiratory 16 17 Rate Blood Pressure 198/68 203/91 184/85 O2 Sat by Pulse 99 97 Oximetry Medical Decision Making - Medical Decision Making X-ray of the right knee is negative for fracture or dislocation, right knee prosthesis is intact. X-ray of the right wrist shows osteoarthritis base of the thumb with no fractures or dislocations carpal bones intact. Right ankle shows no fracture with ankle mortise normal. X-ray of the right tibia-fibula shows no abnormalities or fractures. Patient will be directed to follow up with her primary care doctor by Friday and return if any worsening symptoms. Patient will be given a prescription for Tylenol 3 as needed for severe pain. Case discussed with Disposition Clinical Impression: Fall Disposition: HOME SELF-CARE Condition: Fair Instructions (If sedation given, give patient instructions): Fall Prevention for Older Adults (ED) Additional Instructions: Take Tylenol and Motrin [id number] for pain. Take Tylenol 3 as needed for severe pain. Follow-up with the primary care doctor as week. Return to the emergency room if worsening pain. Is patient prescribed a controlled substance at d/c from ED?: No Referrals: Isak Oneil MD [Primary Care Provider] - 1-2 days Time of Disposition: 21:34
--- NOTE | 2021-04-24 19:39 | XR ---
EXAMINATION TYPE: XR hand complete RT DATE OF EXAM: 04/24/2021 COMPARISON: NONE HISTORY: Pain TECHNIQUE: 3 views FINDINGS: There is some mild narrowing and spurring at the DIP joints. There is spurring at the first carpometacarpal joint. Carpal bones are intact. I see no fracture. IMPRESSION: Osteoarthritis. No fracture seen.
--- NOTE | 2021-04-24 19:40 | XR ---
EXAMINATION TYPE: XR tibia fibula RT DATE OF EXAM: 04/24/2021 COMPARISON: NONE HISTORY: Pain TECHNIQUE: 2 views FINDINGS: There is right knee prosthesis. I see no fracture nor dislocation. Ankle joint is intact. T here is some soft tissue calcification. IMPRESSION: No acute abnormality of the right tibia and fibula.
--- NOTE | 2021-04-24 19:42 | XR ---
EXAMINATION TYPE: XR wrist complete RT DATE OF EXAM: 04/24/2021 COMPARISON: NONE HISTORY: Pain TECHNIQUE: 4 views FINDINGS: Carpal bones appear intact. I see no fracture nor dislocation. There is narrowing and spurr ing at the first carpometacarpal joint. IMPRESSION: Osteoarthritis at the base of the thumb. No fracture seen.
--- NOTE | 2021-04-24 19:43 | XR ---
EXAMINATION TYPE: XR ankle complete RT DATE OF EXAM: 04/24/2021 COMPARISON: NONE HISTORY: Pain TECHNIQUE: 3 views FINDINGS: There is plantar calcaneal spurring. There is some vascular calcification. Ankle mortise is anatomic. Joint spaces are fairly normal. IMPRESSION: No fracture seen. Calcaneal spurring.
--- NOTE | 2021-04-24 19:45 | XR ---
EXAMINATION TYPE: XR knee complete RT DATE OF EXAM: 04/24/2021 COMPARISON: NONE HISTORY: Pain after falling TECHNIQUE: 3 views FINDINGS: I see no fracture nor dislocation. There is right knee prosthesis. Components appear intact . IMPRESSION: No fracture seen.
[2021-04-24 20:37] VITALS: PULSE 73; RESP 17; TEMP 98.9
[2021-04-24] MEDS ORDERED: hydrALAZINE HCL 25 MG TAB PO STA (20:50)
[2021-04-24 21:34] VITALS: BP 174/72
[2021-04-24] MEDS ORDERED: ACET/COD 300 MG/30 MG STARTER PACK 6 TAB BTL PO STA (21:34)
== END 2021-04-24 21:42 | disposition home or self-care (01) ==
LOC: EC 16:46
DX: M25.571 Pain in right ankle and joints of right foot (principal); M25.561 Pain in right knee; M79.641 Pain in right hand; Z88.2 Allergy status to sulfonamides; Z88.8 Allergy status to other drugs, medicaments and biological substances; M79.89 Other specified soft tissue disorders; E11.9 Type 2 diabetes mellitus without complications; I10 Essential (primary) hypertension; Z79.899 Other long term (current) drug therapy; W10.8XXA Fall (on) (from) other stairs and steps, initial encounter; Y92.009 Unspecified place in unspecified non-institutional (private) residence as the place of occurrence of the external cause; Y93.89 Activity, other specified
CPT/HCPCS: 99283

== ENCOUNTER 2021-10-08 15:42 | Emergency (ER) | payer MEDICARE ==
[2021-10-08 17:23] VITALS: BP 172/74; PULSE 85; RESP 20; TEMP 98.5
--- NOTE | 2021-10-08 17:29 | ED ---
General Adult HPI - General Stated complaint: elevated BP Time Seen by Provider: 10/08/21 17:28 Source: patient, RN notes reviewed Mode of arrival: ambulatory Limitations: no limitations - History of Present Illness Initial comments: This is an 81-year-old female presents emergency from chief complaint of hypertension. Patient takes a blood pressure 4 times daily. Patient states it was elevated earlier blood pressures improving. Patient states she checked before taking her dose of hydralazine. Patient denies any chest pain shortness with headache this is likely had no nausea vomiting no complaints states she just checks her blood pressure productive to the was elevated. - Related Data Home Medications Medication Instructions Recorded Confirmed Benazepril HCl 10 mg PO DAILY 09/18/15 04/04/20 Simvastatin 20 mg PO HS 09/18/15 04/04/20 Allergies Allergy/AdvReac Type Severity Reaction Status Date / Time risedronate sodium Allergy Itching Verified 10/08/21 17:21 [From Actonel] Sulfa (Sulfonamide Allergy Itching Verified 10/08/21 17:21 Antibiotics) Review of Systems ROS Statement: Those systems with pertinent positive or pertinent negative responses have been documented in the HPI. ROS Other: All systems not noted in ROS Statement are negative. Past Medical History Past Medical History: Diabetes Mellitus, Hyperlipidemia, Hypertension Additional Past Medical History / Comment(s): Pulmonary nodules on lung, diet controlled diabetic, constipation. Recent infection, poss UTI, po AB Rx completed. History of Any Multi-Drug Resistant Organisms: MRSA Date of last positivie culture/infection: 2009 MDRO Source:: BUTTOCK Past Surgical History: Appendectomy, Cholecystectomy, Hysterectomy, Joint Replacement Additional Past Surgical History / Comment(s): RT KNEE REPLACEMENT. Colonoscopy. Exc bilat Cataracts Past Anesthesia/Blood Transfusion Reactions: No Reported Reaction Past Psychological History: No Psychological Hx Reported Smoking Status: Never smoker Past Alcohol Use History: None Reported Past Drug Use History: None Reported - Past Family History Brother(s) Family Medical History: Cancer Additional Family Medical History / Comment(s): 3 BROTHERS HAD LUNG CA Sister(s) Family Medical History: Cancer Additional Family Medical History / Comment(s): SKIN General Exam Limitations: no limitations General appearance: alert, in no apparent distress Head exam: Present: atraumatic, normocephalic, normal inspection Eye exam: Present: normal appearance, PERRL, EOMI. Absent: scleral icterus, conjunctival injection, periorbital swelling ENT exam: Present: normal exam, mucous membranes moist Neck exam: Present: normal inspection, full ROM. Absent: tenderness, meningismus, lymphadenopathy Respiratory exam: Present: normal lung sounds bilaterally. Absent: respiratory distress, wheezes, rales, rhonchi, stridor Cardiovascular Exam: Present: regular rate, normal rhythm, normal heart sounds. Absent: systolic murmur, diastolic murmur, rubs, gallop, clicks Course Vital Signs 10/08/21 17:21 Temperature 98.5 F Pulse Rate 85 Respiratory 20 Rate Blood Pressure 172/74 O2 Sat by Pulse 96 Oximetry Medical Decision Making - Medical Decision Making Patient's blood pressure is minimally elevated she is due for her next dose of blood pressure medication. She is asymptomatic be discharged in stable condition. Disposition Clinical Impression: Hypertension Disposition: HOME SELF-CARE Condition: Stable Instructions (If sedation given, give patient instructions): Hypertension (ED) Additional Instructions: Please return to the Emergency Department if symptoms worsen or any other concerns. Is patient prescribed a controlled substance at d/c from ED?: No Referrals: Isak Oneil MD [Primary Care Provider] - 1-2 days Time of Disposition: 17:29
== END 2021-10-08 17:39 | disposition home or self-care (01) ==
LOC: EC 15:42
DX: I10 Essential (primary) hypertension (principal); E11.9 Type 2 diabetes mellitus without complications; E78.5 Hyperlipidemia, unspecified; Z88.2 Allergy status to sulfonamides; Z87.440 Personal history of urinary (tract) infections; Z90.49 Acquired absence of other specified parts of digestive tract; Z90.710 Acquired absence of both cervix and uterus; Z96.651 Presence of right artificial knee joint
CPT/HCPCS: 99283

== ENCOUNTER → 2021-12-13 | Outpatient (CLI) | payer MEDICARE ==
--- NOTE | 2021-12-13 10:29 | CT ---
EXAMINATION TYPE: CT chest wo con DATE OF EXAM: 12/13/2021 COMPARISON: Chest CT April 25, 2020 and older CTs HISTORY: Pulmonary nodule CT DLP: 140.1 mGycm. Automated Exposure Control for Dose Reduction was Utilized. TECHNIQUE: CT scan of the thorax is performed without IV contrast. FINDINGS: LUNGS: Moderate underlying emphysematous change with moderate bilateral parenchymal fibrosis and reti culation that shows slight continued interval progression from older studies. Stable 4 mm subpleural nodule peripheral right lung axial image 28. No new or enlarging greater than 5 mm pulmonary nodules. No pleural effusion or pneumothorax seen bilaterally. MEDIASTINUM: Lack of IV contrast is noted to limit evaluation for mediastinal and especially hilar ad enopathy. There are no definitive greater than 1 cm mediastinal lymph nodes. Mild cardiomegaly redemo nstrated. No pericardial effusion is seen. Severe three-vessel coronary artery calcification redemons trated. OTHER: Exaggerated thoracic curvature with moderate multilevel anterior and lateral spurring in the m id to lower thoracic spine. IMPRESSION: Moderate emphysematous and bilateral peripheral pulmonary fibrotic changes show continued interval progression over last several CTs in the latter. No suspicious new or enlarging greater melita n 5 mm pulmonary nodules or masses.
== END | disposition home or self-care (01) ==
LOC: RADCTMAIN 08:47
PROVIDERS: ATTEND Internal Medicine Pulmonary Disease
DX: J43.9 Emphysema, unspecified (principal); J84.10 Pulmonary fibrosis, unspecified; E13.9 Other specified diabetes mellitus without complications; I10 Essential (primary) hypertension
CPT/HCPCS: 71250

== ENCOUNTER → 2022-02-11 | Outpatient (CLI) | payer MEDICARE ==
--- NOTE | 2022-02-12 11:55 | MM ---
Reason for exam: screening (asymptomatic). Last mammogram was performed 2 years and 2 months ago. History: Patient is postmenopausal. Benign right mammotome panel of the right breast, January 24, 2012. Physical Findings: A clinical breast exam by your physician is recommended on an annual basis and results should be correlated with mammographic findings. MG 3D Screening Mammo W/Cad Bilateral CC and MLO view(s) were taken. Prior study comparison: December 01, 2019, bilateral MG 3d screening mammo w/cad. November 13, 2018, left breast MG 3d work up w/cad LT. The breast tissue is heterogeneously dense. This may lower the sensitivity of mammography. Stable benign calcifications. There is no discrete abnormality. No significant changes when compared with prior studies. ASSESSMENT: Benign, BI-RAD 2 RECOMMENDATION: Routine screening mammogram of both breasts in 1 year.
== END | disposition home or self-care (01) ==
LOC: RADMAMWWP 10:50
PROVIDERS: ATTEND Family Medicine
DX: Z12.31 Encounter for screening mammogram for malignant neoplasm of breast (principal); Z78.0 Asymptomatic menopausal state
CPT/HCPCS: 77063; 77067

== ENCOUNTER → 2022-06-18 | Outpatient (CLI) | payer MEDICARE ==
--- NOTE | 2022-06-18 12:22 | CT ---
EXAMINATION TYPE: CT soft tissue neck w con CT DLP: 348.5 mGycm, Automated exposure control for dose reduction was used. DATE OF EXAM: 06/18/2022 12:06 PM COMPARISON: None. CLINICAL INDICATION:Female, 81 years old with history of R22.1 suprasternal lump/pain/fullness, Lump feeling in neck. Difficulty swallowing. Hoarseness TECHNIQUE: Standard enhanced CT of the neck. Axial sections with coronal and sagittal reformats were obtained. Contrast used:125 ML mL of Isovue 370 with IV Contrast, Oral contrast used: none. FINDINGS: Brain: Visualized portions are grossly unremarkable. Orbits: Bilateral aphakia Sinuses: Grossly unremarkable. Spaces of the neck: Clear and symmetric. The vocal cords and larynx is symmetric. Musculoskeletal: No acute osseous pathology. Lymph nodes: Multiple nonenlarged lymph nodes are seen along both anterior chains of the neck. Vascular structures: Visualized major arteries are patent without evidence of aneurysm. Thoracic Inlet/airway: Airway is patent. Mild centrilobular emphysema changes. Mild peripheral reticu lation of the lungs. The suprasternal portion of the patient demonstrates to subcutaneous fat without evidence for lipoma. Soft tissues/Thyroid: Thyroid and remainder of the soft tissues are unremarkable. Other: none. IMPRESSION 1. No definite evidence for mass or significant abnormality to explain the patient's symptomology. N ote: No palpable marker was placed at the site of palpable abnormality. 2. The larynx and vocal cords are symmetric.
== END | disposition home or self-care (01) ==
LOC: RADCTMAIN 10:43
PROVIDERS: ATTEND Otolaryngology
DX: R22.1 Localized swelling, mass and lump, neck (principal)
CPT/HCPCS: 82565; 84520; 70491; 36415; Q9967

== ENCOUNTER → 2022-08-22 | Outpatient (CLI) | payer MEDICARE ==
[2022-08-22 17:17] LABS: African American GFR (CKD) 60.8 (60.0-200.0); Anion Gap 14.2 mmol/L (10.00-18.00); BUN/Creat Ratio 24.8 Ratio (12.00-20.00); Blood Urea Nitrogen 24.8 mg/dL (9.0-27.0); Carbon Dioxide 20.8 mmol/L (20.0-27.5); Non-African American GFR(CKD) 52.4 (60.0-200.0); Potassium 5.1 mmol/L (3.5-5.5)
== END | disposition home or self-care (01) ==
LOC: LABWHC1 09:49
PROVIDERS: ATTEND Internal Medicine
DX: I10 Essential (primary) hypertension (principal)
CPT/HCPCS: 36415; 80048

== ENCOUNTER → 2023-12-15 | Outpatient (CLI) | payer MEDICARE ==
--- NOTE | 2023-12-16 18:01 | CT ---
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 Contrast: None Technique: Axial images 1 mm thick sections. Reconstructed images in the coronal plane FINDINGS: Maxillary sinuses are clear. Sphenoid sinuses are clear. There is a couple retention cysts within the posterior left ethmoid air cells. Remaining ethmoid air cells appear clear. The inferior portions of the frontal sinuses within the [id number] are clear Right mastoid air cells are clear. Fluid-filled left mastoid air cells are present. No septal destru ction is evident. Left septal deviation is present superiorly. Some right septal deviation may be present inferiorly. O stiomeatal units are patent. Attention is paid to the internal auditory canals no expansion or erosion is evident. Cochlea are nor mal. Semicircular canals are normal in case the malleus on the right is normal There is opacification of the medial left attic with partial surrounding of the left incus and malleu s. Osseous Orientation is preserved. Erosion is not identified. Small amount of increased density may be within the middle ear. Fluid associated with otitis media is favored. The scutum are normal bilat erally. There are some lucencies within the posterior inner calvarium of the posterior fossa. These were pres ent on the CT brain of 2019. Pachyon granulation may be present in these locations. IMPRESSION: 1. CLINICAL CORRELATION RECOMMENDED FOR LEFT MASTOIDITIS. SMALL AMOUNT OF FLUID APPEARS TO BE WITHIN THE MIDDLE EAR WELL. OTITIS MEDIA SHOULD BE CONSIDERED. FOLLOW-UP EXAM CAN BE PERFORMED FOLLOWING TREATMENT
== END | disposition home or self-care (01) ==
LOC: RADCTMAIN 07:57
PROVIDERS: ATTEND Otolaryngology
DX: H66.3X2 Other chronic suppurative otitis media, left ear (principal)
CPT/HCPCS: 70480

== ENCOUNTER 2024-01-30 17:37 | Observation (INO) | payer MEDICARE ==
--- NOTE | 2024-01-30 18:09 | ED ---
Dizziness HPI - General Chief Complaint: Dizziness Stated Complaint: Hypertension/Dizziness Time Seen by Provider: 01/30/24 18:08 Source: patient, RN notes reviewed, old records reviewed Mode of arrival: ambulatory Limitations: no limitations - History of Present Illness Initial Comments: This is a 83-year-old female to the ER for evaluation today. This patient presents today for evaluation regards to not feeling well significant shaking anxious anxiety. Elevated blood pressure with increasing anxiety. MD Complaint: dizziness, lightheadedness -: hour(s) Timing: sudden onset, gradual onset, awoke with symptoms History of Same: Yes History of Trauma: Yes Severity: mild Improves With: nothing Worsens With: nothing Associated Symptoms: denies other symptoms - Related Data Home Medications Medication Instructions Recorded Confirmed Simvastatin 20 mg PO HS 09/18/15 01/30/24 Aspirin EC [Ecotrin Low Dose] 81 mg PO DAILY 01/30/24 01/30/24 Benazepril HCl [Lotensin] 20 mg PO DAILY@0530 01/30/24 01/30/24 hydrALAZINE HCL [Apresoline] 25 - 50 mg PO TID@0830,1430,2030 01/30/24 01/30/24 hydroCHLOROthiazide 12.5 mg PO DAILY@0630 01/30/24 01/30/24 metFORMIN HCL [Glucophage] 125 mg PO BID PRN 01/30/24 01/30/24 Previous Rx's Medication Instructions Recorded Metoprolol Succinate (ER) [Toprol 12.5 mg PO DAILY #30 tab 02/01/24 XL] Allergies Allergy/AdvReac Type Severity Reaction Status Date / Time risedronate sodium Allergy Itching Verified 02/02/24 21:20 [From Actonel] Sulfa (Sulfonamide Allergy Itching Verified 02/02/24 21:20 Antibiotics) Review of Systems ROS Statement: Those systems with pertinent positive or pertinent negative responses have been documented in the HPI. ROS Other: All systems not noted in ROS Statement are negative. Past Medical History Past Medical History: Diabetes Mellitus, Hyperlipidemia, Hypertension Additional Past Medical History / Comment(s): Pulmonary nodules on lung, diet controlled diabetic, constipation. Recent infection, poss UTI, po AB Rx completed. History of Any Multi-Drug Resistant Organisms: MRSA Date of last positivie culture/infection: 2009 MDRO Source:: BUTTOCK Past Surgical History: Appendectomy, Cholecystectomy, Hysterectomy, Joint Replacement Additional Past Surgical History / Comment(s): RT KNEE REPLACEMENT. Colonoscopy. Exc bilat Cataracts Past Anesthesia/Blood Transfusion Reactions: No Reported Reaction Past Psychological History: No Psychological Hx Reported Smoking Status: Never smoker Past Alcohol Use History: None Reported Past Drug Use History: None Reported - Past Family History Brother(s) Family Medical History: Cancer Additional Family Medical History / Comment(s): 3 BROTHERS HAD LUNG CA Sister(s) Family Medical History: Cancer Additional Family Medical History / Comment(s): SKIN General Exam Limitations: no limitations General appearance: anxious Head exam: Present: atraumatic, normocephalic, normal inspection Eye exam: Present: normal appearance, PERRL, EOMI. Absent: scleral icterus, conjunctival injection, periorbital swelling ENT exam: Present: normal exam, mucous membranes moist Neck exam: Present: normal inspection. Absent: tenderness, meningismus, lymphadenopathy Respiratory exam: Present: normal lung sounds bilaterally. Absent: respiratory distress, wheezes, rales, rhonchi, stridor Cardiovascular Exam: Present: regular rate, normal rhythm, normal heart sounds. Absent: systolic murmur, diastolic murmur, rubs, gallop, clicks GI/Abdominal exam: Present: soft, normal bowel sounds. Absent: distended, tenderness, guarding, rebound, rigid Extremities exam: Present: normal inspection, full ROM, normal capillary refill. Absent: tenderness, pedal edema, joint swelling, calf tenderness Back exam: Present: normal inspection Neurological exam: Present: alert, oriented X3, CN II-XII intact Psychiatric exam: Present: normal affect, normal mood Skin exam: Present: warm, dry, intact, normal color. Absent: rash Course Vital Signs 01/30/24 01/30/24 01/30/24 17:38 17:43 18:43 Temperature 97.5 F L Pulse Rate 87 66 Respiratory 18 17 Rate Blood Pressure 189/80 191/71 191/71 O2 Sat by Pulse 99 98 Oximetry 01/30/24 01/30/24 19:22 20:41 Temperature Pulse Rate 80 69 Respiratory 16 16 Rate Blood Pressure 151/76 145/69 O2 Sat by Pulse 98 100 Oximetry - Reevaluation(s) Reevaluation #1: 01/30/24 19:10 Medical records reviewed Reevaluation #2: 01/30/24 19:10 Patient symptoms unchanged Reevaluation #3: 01/30/24 19:57 Patient informed of results questions answered Reevaluation #4: Was pt. sent in by a medical professional or institution (AMBREEN Babb, AFFILIATE MANAGER, urgent care, hospital, or half-way...) When possible be specific @ -no Did you speak to anyone other than the patient for history (EMS, parent, family, police, friend...)? What history was obtained from this source @ -no Did you review nursing and triage notes (agree or disagree)? Why? @ -agree Are old charts reviewed (outside hosp., previous admission, EMS record, old EKG, old radiological studies, urgent care reports/EKG's, half-way records)? Report findings @ -yes Differential Diagnosis (chest pain, altered mental status, abdominal pain women, abdominal pain men, vaginal bleeding, weakness, fever, dyspnea, syncope, headache, dizziness, GI bleed, back pain, seizure, CVA, palpatations, mental health, musculoskeletal)? @ -prior EKG interpreted by me (3pts min.). @ -yes X-rays interpreted by me (1pt min.). @ -no CT interpreted by me (1pt min.). @ -yes negative for acute disease U/S interpreted by me (1pt. min.). @ -no What testing was considered but not performed or refused? (CT, X-rays, U/S, l abs)? Why? @ -none What meds were considered but not given or refused? Why? @ -none Did you discuss the management of the patient with other professionals (professionals i.e. AMBREEN Babb, AFFILIATE MANAGER, lab, RT, psych nurse, case management social worker, data architect, teacher, patient safety officer, business case analyst)? Give summary @ -no Was smoking cessation discussed for >3mins.? @ -no Was critical care preformed (if so, how long)? @ -no Were there social determinants of health that impacted care today? How? (Homelessness, low income, unemployed, alcoholism, drug addiction, transportation, low edu. Level, literacy, decrease access to med. care, snf, rehab)? @ -none Was there de-escalation of care discussed even if they declined (Discuss DNR or withdrawal of care, Hospice)? DNR status @ -no What co-morbidities impacted this encounter? (DM, HTN, Smoking, COPD, CAD, Cancer, CVA, ARF, Chemo, Hep., AIDS, mental health diagnosis, sleep apnea, morbid obesity)? @ -none Was patient admitted / discharged? Hospital course, mention meds given and route, prescriptions, significant lab abnormalities, going to OR and other pertinent info. @ - 83 female to the ED co weakness and Hypertension, anxiety, abdominal pain, headache, will admit for observation and monitoring Admitted Undiagnosed new problem with uncertain prognosis? @ -no Drug Therapy requiring intensive monitoring for toxicity (Heparin, Nitro, Insulin, Cardizem)? @ -no Were any procedures done? @ -no Diagnosis/symptom? @ -Hypertension with anxiety and headaches Acute, or Chronic, or Acute on Chronic? @ -Acute Uncomplicated (without systemic symptoms) or Complicated (systemic symptoms)? @ -Complicated Side effects of treatment? @ -no Exacerbation, Progression, or Severe Exacerbation? @ -exacerbation Poses a threat to life or bodily function? How? (Chest pain, USA, DC, pneumonia, PE, COPD, DKA, ARF, appy, cholecystitis, CVA, Diverticulitis, Homicidal, Suicidal, threat to staff... and all critical care pts) @ -yes with extremes of range - Consultations Consultation #1: Spoke with Dr. Sandoval and who agrees to admit this patient EKG Findings - EKG Comments: EKG Findings:: EKG is sinus 62 TX 139 QRS 118 QTc 468 - EKG Results: EKG: interpreted by ERMD Medical Decision Making - Medical Decision Making 83 female to the ED co weakness and Hypertension, anxiety, abdominal pain, headache, will admit for observation and monitoring - Lab Data Result diagrams: 01/31/24 05:52 01/31/24 05:52 Lab Results 01/30/24 01/30/24 01/30/24 Range/Units 18:08 18:08 18:08 WBC 5.8 (3.8-10.6) k/uL RBC 4.53 (3.80-5.40) m/uL Hgb 12.8 (11.4-16.0) gm/dL Hct 39.9 (34.0-46.0) % MCV 88.2 (80.0-100.0) fL MCH 28.2 (25.0-35.0) pg MCHC 32.0 (31.0-37.0) g/dL RDW 13.4 (11.5-15.5) % Plt Count 282 (150-450) k/uL MPV 7.8 Neutrophils % 62 % Lymphocytes % 27 % Monocytes % 6 % Eosinophils % 2 % Basophils % 1 % Neutrophils # 3.6 (1.3-7.7) k/uL Lymphocytes # 1.6 (1.0-4.8) k/uL Monocytes # 0.4 (0-1.0) k/uL Eosinophils # 0.1 (0-0.7) k/uL Basophils # 0.1 (0-0.2) k/uL PT 10.7 (10.0-12.5) sec INR 1.0 (<1.2) APTT 22.8 (22.0-30.0) sec Sodium 137 (137-145) mmol/L Potassium 4.0 (3.5-5.1) mmol/L Chloride 104 (98-107) mmol/L Carbon Dioxide 24 (22-30) mmol/L Anion Gap 9 mmol/L BUN 25 H (7-17) mg/dL Creatinine 0.71 (0.52-1.04) mg/dL Est GFR (CKD-EPI)AfAm >90 (>60 ml/min/1.73 sqM) Est GFR (CKD-EPI)NonAf 79 (>60 ml/min/1.73 sqM) Glucose 144 H (74-99) mg/dL Plasma Lactic Acid Jeromy (0.7-2.0) mmol/L Calcium 9.9 (8.4-10.2) mg/dL Phosphorus 3.8 (2.5-4.5) mg/dL Magnesium 1.8 (1.6-2.3) mg/dL Total Bilirubin 0.7 (0.2-1.3) mg/dL AST 34 (14-36) U/L ALT 25 (4-34) U/L Alkaline Phosphatase 72 (38-126) U/L Troponin I (0.000-0.034) ng/mL NT-Pro-B Natriuret Pep 379 pg/mL Total Protein 8.0 (6.3-8.2) g/dL Albumin 4.6 (3.5-5.0) g/dL 01/30/24 01/30/24 Range/Units 18:08 18:08 WBC (3.8-10.6) k/uL RBC (3.80-5.40) m/uL Hgb (11.4-16.0) gm/dL Hct (34.0-46.0) % MCV (80.0-100.0) fL MCH (25.0-35.0) pg MCHC (31.0-37.0) g/dL RDW (11.5-15.5) % Plt Count (150-450) k/uL MPV Neutrophils % % Lymphocytes % % Monocytes % % Eosinophils % % Basophils % % Neutrophils # (1.3-7.7) k/uL Lymphocytes # (1.0-4.8) k/uL Monocytes # (0-1.0) k/uL Eosinophils # (0-0.7) k/uL Basophils # (0-0.2) k/uL PT (10.0-12.5) sec INR (<1.2) APTT (22.0-30.0) sec Sodium (137-145) mmol/L Potassium (3.5-5.1) mmol/L Chloride (98-107) mmol/L Carbon Dioxide (22-30) mmol/L Anion Gap mmol/L BUN (7-17) mg/dL Creatinine (0.52-1.04) mg/dL Est GFR (CKD-EPI)AfAm (>60 ml/min/1.73 sqM) Est GFR (CKD-EPI)NonAf (>60 ml/min/1.73 sqM) Glucose (74-99) mg/dL Plasma Lactic Acid Jeromy 0.8 (0.7-2.0) mmol/L Calcium (8.4-10.2) mg/dL Phosphorus (2.5-4.5) mg/dL Magnesium (1.6-2.3) mg/dL Total Bilirubin (0.2-1.3) mg/dL AST (14-36) U/L ALT (4-34) U/L Alkaline Phosphatase (38-126) U/L Troponin I <0.012 (0.000-0.034) ng/mL NT-Pro-B Natriuret Pep pg/mL Total Protein (6.3-8.2) g/dL Albumin (3.5-5.0) g/dL - EKG Data -: EKG Interpreted by Me - Radiology Data Radiology results: report reviewed (CT brain CT abdomen pelvis negative for acute disease), image reviewed Disposition Clinical Impression: Dehydration, Hypertension, Abdominal pain, Chest pain Disposition: ADMITTED IP TO THIS HOSP Condition: Fair Is patient prescribed a controlled substance at d/c from ED?: No Time of Disposition: 19:45
[2024-01-30] MEDS: SODIUM CHLORIDE 0.9% 1,000 ML IV STA (18:45)
[2024-01-30] MEDS: LABETALOL 5 MG/ML VIAL MDV IVP STA (18:47)
[2024-01-30 18:55] LABS: Basophils # (A) 0.1 k/uL (0-0.2); Basophils % (A) 1 %; Eosinophils # (A) 0.1 k/uL (0-0.7); Eosinophils % (A) 2 %; HCT 39.9 % (34.0-46.0); HGB 12.8 gm/dL (11.4-16.0); Lymphocytes # (A) 1.6 k/uL (1.0-4.8); Lymphocytes % (A) 27 %; MCH 28.2 pg (25.0-35.0); MCV 88.2 fL (80.0-100.0); Mean Platelet Volume 7.8; Monocytes # (A) 0.4 k/uL (0-1.0); Monocytes % (A) 6 %; Neutrophils # (A) 3.6 k/uL (1.3-7.7); Neutrophils % (A) 62 %; Platelet Count 282 k/uL (150-450); RBC 4.53 m/uL (3.80-5.40); RDW 13.4 % (11.5-15.5); WBC 5.8 k/uL (3.8-10.6)
[2024-01-30 19:05] LABS: ALT 25 U/L (4-34); AST 34 U/L (14-36); African American GFR (CKD) >90 (>60 ml/min/1.73 sqM); Albumin 4.6 g/dL (3.5-5.0); Alkaline Phosphatase 72 U/L (38-126); Anion Gap 9 mmol/L; Blood Urea Nitrogen 25 mg/dL (7-17); Calcium 9.9 mg/dL (8.4-10.2); Carbon Dioxide 24 mmol/L (22-30); Chloride 104 mmol/L (98-107); Glucose 144 mg/dL (74-99); Magnesium 1.8 mg/dL (1.6-2.3); Non-African American GFR(CKD) 79 (>60 ml/min/1.73 sqM); Phosphorus 3.8 mg/dL (2.5-4.5); Sodium 137 mmol/L (137-145); Total Bilirubin 0.7 mg/dL (0.2-1.3)
[2024-01-30 19:11] LABS: Partial Thromboplastin Time 22.8 sec (22.0-30.0); Prothrombin Time 10.7 sec (10.0-12.5)
[2024-01-30 19:14] LABS: NT-Pro-B-Type Natriuretic Pept 379 pg/mL
[2024-01-30] MEDS ORDERED: NALOXONE 0.4 MG/ML 1 ML VIAL IV PRN (19:52)
[2024-01-30] MEDS ORDERED: HYDROmorphone 1 MG/ML 1 ML SYRINGE IVP PRN (19:52)
[2024-01-30] MEDS ORDERED: LORazepam 2 MG/ML INJ IV PRN (19:52)
[2024-01-30] MEDS: SODIUM CHLORIDE 0.9% 1,000 ML IV SCH (20:38)
[2024-01-30] MEDS: LORazepam 2 MG/ML INJ IV STA (20:39)
--- NOTE | 2024-01-30 21:06 | CT ---
EXAMINATION TYPE: CT brain wo con CT DLP: 1050.4 mGycm, Automated exposure control for dose reduction was used. DATE OF EXAM: 01/30/2024 8:28 PM COMPARISON: None. CLINICAL INDICATION:Female, 83 years old with history of abd pain, htn/dizzy/headache TECHNIQUE: Brain: Axial CT images of the brain were obtained with coronal and sagittal reformats created and rev iewed. Contrast used: None. Oral contrast used: None. FINDINGS: Extra-axial spaces: No abnormal extra-axial fluid collections. Ventricular system: Ventricles appear dilated in proportion to the degree of cerebral atrophy. Cerebral parenchyma: No increased attenuation to suggest acute intraparenchymal hemorrhage. The gra y-white matter interface appears maintained. Moderate to severe generalized brain atrophy. Scattere d hypoattenuating areas are seen within the cerebral white matter, nonspecific but most often seen wi th chronic microvascular ischemic changes; moderate/severe in degree. Cerebellum: No acute abnormality. Mass effect: No evidence of mass effect or midline shift. Intracranial vasculature: Atherosclerotic calcifications of the larger arteries near the skull base. Soft tissues: No acute or concerning abnormality. Visualized orbits: Orbital contents appear grossly intact. Likely prior surgery bilaterally. Calvarium/osseous structures: No evidence of calvarial fracture. Paranasal sinuses and mastoid air cells: Mild mucosal thickening without significant fluid accumulati on. Mastoid air cells are clear. MRI is more sensitive for detecting acute processes such as infarct, and may be considered if clinica lly warranted. IMPRESSION: 1. No acute intracranial CT abnormality. 2. Moderate to severe atrophy and chronic small vessel ischemic changes.
[2024-01-30] MEDS: lisinopriL 20 MG TAB PO SCH (23:11)
--- NOTE | 2024-01-31 01:09 | CT ---
EXAMINATION TYPE: CT abdomen pelvis wo con CT DLP: 1367.3 mGycm, Automated exposure control for dose reduction was used. DATE OF EXAM: 01/30/2024 8:30 PM COMPARISON: None. CLINICAL INDICATION:Female, 83 years old with history of abd pain; abd pain TECHNIQUE: Axial CT of the abdomen and pelvis. Sagittal and coronal reformats were created on a [employer] workstation. Contrast used: mL of , (none if empty) Oral contrast used: without Oral Contrast (none if empty) FINDINGS: LOWER CHEST: Bibasilar pulmonary fibrotic changes. Heart is mildly enlarged. Moderate mitral valve, a ortic valve, coronary artery calcifications. Small hiatal hernia. ABDOMEN LIVER: Unremarkable GALLBLADDER AND BILE DUCTS: Gallbladder not seen well, likely contracted. No biliary dilatation. PANCREAS: Unremarkable. SPLEEN: Scattered calcified granulomas. ADRENAL GLANDS: Unremarkable. KIDNEYS AND URETERS: Kidneys enhance symmetrically. No evidence of hydronephrosis or visible renal ca lculus. The ureters are unremarkable. PELVIS BLADDER: Unremarkable REPRODUCTIVE: The uterus appears absent, correlate for hysterectomy. ABDOMEN & PELVIS STOMACH AND BOWEL: Stomach and small bowel are nondistended, no evidence of obstruction. The append ix is not seen with certainty but there is no inflammatory process seen in the pericecal region. The re is a large amount of stool throughout the colon, correlate for constipation. Multiple diverticula are seen in the sigmoid region. PERITONEUM/RETROPERITONEUM: No evidence of pneumoperitoneum or free fluid. VASCULATURE: Moderate atherosclerotic calcifications are present throughout the abdominal aorta and i ts branches. No evidence of aortic aneurysm. LYMPH NODES: No gross evidence for lymphadenopathy. SOFT TISSUE/ABDOMINAL WALL: Small fat-containing hernia in the ventral midline abdominal wall with a neck 8.6 mm, hernia sac size 38 x 21 mm. MUSCULOSKELETAL: No acute osseous abnormalities. Moderate disc degeneration changes are present throu ghout the thoracolumbar spine. IMPRESSION: 1. No acute abnormality in the abdomen or pelvis. 2. Other chronic and likely incidental findings, as described above.
[2024-01-31] MEDS: hydroCHLOROthiazide 12.5 MG CAP PO SCH (05:57)
[2024-01-31] MEDS: PANTOPRAZOLE 40 MG/10 ML VIAL IV SCH (09:18)
[2024-01-31] MEDS: ASPIRIN 81 MG PO SCH (09:19)
[2024-01-31 09:23] LABS: Basophils # (A) 0.05 X 10*3/uL (0.00-0.10); Eosinophils # (A) 0.17 X 10*3/uL (0.04-0.35); Eosinophils % (A) 3.4 %; HCT 31.2 % (37.2-46.3); Lymphocytes # (A) 1.83 X 10*3/uL (0.90-5.00); Lymphocytes % (A) 36.2 %; MCH 27.5 pg (27.0-32.0); MCHC 32.1 g/dL (32.0-37.0); Mean Platelet Volume 10.6 FL (9.5-12.2); Monocytes # (A) 0.46 X 10*3/uL (0.20-1.00); Monocytes % (A) 9.1 %; NRBC Per 100 WBC 0 X 10*3/uL (0.00-0.01); Neutrophils # (A) 2.54 X 10*3/uL (1.80-7.70); Neutrophils % (A) 50.1 %; Platelet Count 267 X 10*3/uL (140-440); RBC 3.63 X 10*6/uL (4.10-5.20); RDW 13.2 % (11.5-14.5); WBC 5.06 X 10*3/uL (4.50-10.00)
[2024-01-31] MEDS: METOPROLOL SUCCINATE (ER) 25 MG TAB.ER.24H PO SCH (10:33)
[2024-01-31] MEDS: hydrALAZINE HCL 50 MG TAB PO SCH (10:40)
[2024-01-31 10:51] LABS: ALT 21 U/L (8-44); AST 23 U/L (13-35); Albumin 3.6 g/dL (3.8-4.9); Albumin/Globulin Ratio 1.57 Ratio (1.60-3.17); Alkaline Phosphatase 48 U/L (41-126); Blood Urea Nitrogen 16.1 mg/dL (9.0-27.0); Calcium 8.8 mg/dL (8.7-10.3); Carbon Dioxide 27.1 mmol/L (21.6-31.8); Chloride 108 mmol/L (96-109); Globulin 2.3 g/dL (1.6-3.3); Glucose 107 mg/dL (70-110); Magnesium 1.8 mg/dL (1.5-2.4); Phosphorus 3.4 mg/dL (2.4-5.1); Potassium 4.2 mmol/L (3.5-5.5); Sodium 144 mmol/L (135-145); Total Bilirubin 0.4 mg/dL (0.3-1.2); Total Protein 5.9 g/dL (6.2-8.2)
--- NOTE | 2024-01-31 11:50 | PN ---
PROGRESS NOTE CHIEF COMPLAINT: Uncontrolled hypertension. HISTORY OF PRESENT ILLNESS: This lady is doing well. She feels fine. Her blood pressure is still fluctuating and she is slightly tachycardic. PHYSICAL EXAMINATION: CARDIAC: Normal. CHEST: Clear. There are no signs of failure. IMPRESSION: 1. Labile hypertension. 2. Type 2 diabetes. PLAN: Add Toprol-XL 12.5 mg once a day to her program. MMODL / IJN: [id number] /
[2024-01-31] MEDS: PSYLLIUM HUSK 100% 6 GM PACKET PO SCH (14:36)
[2024-01-31] MEDS: hydrALAZINE HCL 25 MG TAB PO SCH (14:36)
[2024-01-31] MEDS: ATORVASTATIN 10 MG TAB PO SCH (20:41)
[2024-01-31 20:43] LABS: Glucose,Whole Blood 245 mg/dL (70-110)
[2024-02-01] MEDS: PANTOPRAZOLE 40 MG TABLET PO SCH (06:04)
[2024-02-01 07:45] VITALS: BP 176/73; PULSE 64; RESP 19; TEMP 98
--- NOTE | 2024-02-03 07:32 | HP ---
HISTORY AND PHYSICAL CHIEF COMPLAINT: Hypertension. HISTORY OF PRESENT ILLNESS: This is another admission for this 83-year-old white female with longstanding history of hypertension, which is quite labile. She also has type 2 diabetes, which is not a problem. Her blood pressure miguel up to around 190-200 when she came to emergency room. She is a very nice individual. Her blood pressure will go up and then down. She did not have any headache, chest pain, shortness of breath, neurologic symptoms, etc. REVIEW OF SYSTEMS: Completely normal. She has had no nausea, chest pain, abdominal pain, etc. Past medical history, family history, and personal and social histories are all otherwise unremarkable. PHYSICAL EXAMINATION: VITAL SIGNS: Her blood pressure is 188/64 with a pulse of 81 and regular, respirations of 19, and she is afebrile. GENERAL: She appeared to be small, slender, and in no acute distress. Skin color is normal. HEAD, EARS, EYES, NOSE, MOUTH, AND THROAT: Normal. Carotids are normal. There is no neck vein distention. CHEST: Clear. There are no rales. CARDIAC: Demonstrated normal sinus rhythm. There are no murmurs or extra sounds. ABDOMEN: Soft, nontender. EXTREMITIES: Normal. NEUROLOGICAL: She is intact. She is admitted to the hospital. DIAGNOSIS: 1. Labile hypertension. 2. History of ASCVD. 3. History of type 2 diabetes. PLAN: 1. Bedrest with telemetry. 2. IV fluids. 3. Monitor her blood pressures and pulse. MMODL / IJN: [id number] /
--- NOTE | 2024-02-04 22:29 | DS ---
DISCHARGE SUMMARY CHIEF COMPLAINT: Labile hypertension. HISTORY OF PRESENT ILLNESS AND PHYSICAL EXAMINATION: Details of this lady's history and physical can be found in the initial workup. LABORATORY STUDIES: While she was in the hospital, she had laboratory studies, details of which can be found in the laboratory section of her chart. COURSE IN THE HOSPITAL: After admission, she was placed on bedrest and started on intravenous fluids and monitoring her blood pressure, which did fluctuate. She also had tachycardia. She was started on a low dose of Toprol-XL and remained stable and it was felt that she could be discharged on the and go home on her usual activities, diet, and medication along with Toprol and she will be seen in several days. FINAL DIAGNOSIS: Labile hypertension. OPERATIONS: None. CONSULTATION: None. She is improved. MMANTONIOL / TRUDIN: [id number] /
== END 2024-02-01 10:42 | disposition home or self-care (01) ==
LOC: EC 17:37 → 6NMEDSUR 19:53
PROVIDERS: ADMIT Family Medicine; ATTEND Family Medicine
DX: I10 Essential (primary) hypertension (principal); E86.0 Dehydration; E11.9 Type 2 diabetes mellitus without complications; I25.10 Atherosclerotic heart disease of native coronary artery without angina pectoris; R10.9 Unspecified abdominal pain; R00.0 Tachycardia, unspecified; F41.9 Anxiety disorder, unspecified; Z79.82 Long term (current) use of aspirin; Z79.84 Long term (current) use of oral hypoglycemic drugs; Z79.899 Other long term (current) drug therapy; Z88.2 Allergy status to sulfonamides; Z88.8 Allergy status to other drugs, medicaments and biological substances
CPT/HCPCS: 96375 ×2; 96361; 96374; 99285; 36415; 93005; 83880; 80053 ×2; 83605; 83735 ×2; 84100 ×2; 84484; 85025 ×2; 85610; 85730; 70450; 74176; G0378 ×3; J2060; C9113; J1920

== ENCOUNTER 2024-02-02 20:52 | Emergency (ER) | payer MEDICARE ==
--- NOTE | 2024-02-02 22:39 | ED ---
Recheck HPI - General Chief Complaint: Recheck/Abnormal Lab/Rx Stated Complaint: Hypertension Time Seen by Provider: 02/02/24 21:20 Source: patient, family, RN notes reviewed, old records reviewed Mode of arrival: ambulatory Limitations: no limitations - History of Present Illness Initial Comments: This is an 83-year-old female to the ER for evaluation today patient presents today for evaluation regards to hypertension with uncontrolled multiple blood pressure. Patient has recent hospital admission for uncontrolled blood pressure and took her blood pressure when she was discharged home today and found her blood pressure to be elevated again. Patient has no other symptoms. No headache chest pain shortness breath abdominal pain. She did not take her medication this afternoon MD Complaint: abnormal lab (Better blood pressure) -: unknown Symptoms Since Prior Visit: no new symptoms Associated Symptoms: none Treatments Prior to Arrival: other - Related Data Home Medications Medication Instructions Recorded Confirmed Simvastatin 20 mg PO HS 09/18/15 01/30/24 Aspirin EC [Ecotrin Low Dose] 81 mg PO DAILY 01/30/24 01/30/24 Benazepril HCl [Lotensin] 20 mg PO DAILY@0530 01/30/24 01/30/24 hydrALAZINE HCL [Apresoline] 25 - 50 mg PO TID@0830,1430,2030 01/30/24 01/30/24 hydroCHLOROthiazide 12.5 mg PO DAILY@0630 01/30/24 01/30/24 metFORMIN HCL [Glucophage] 125 mg PO BID PRN 01/30/24 01/30/24 Previous Rx's Medication Instructions Recorded Metoprolol Succinate (ER) [Toprol 12.5 mg PO DAILY #30 tab 02/01/24 XL] Allergies Allergy/AdvReac Type Severity Reaction Status Date / Time risedronate sodium Allergy Itching Verified 02/02/24 21:20 [From Actonel] Sulfa (Sulfonamide Allergy Itching Verified 02/02/24 21:20 Antibiotics) Review of Systems ROS Statement: Those systems with pertinent positive or pertinent negative responses have been documented in the HPI. ROS Other: All systems not noted in ROS Statement are negative. Past Medical History Past Medical History: Diabetes Mellitus, Hyperlipidemia, Hypertension Additional Past Medical History / Comment(s): Pulmonary nodules on lung, diet controlled diabetic, constipation. Recent infection, poss UTI, po AB Rx completed. History of Any Multi-Drug Resistant Organisms: MRSA Date of last positivie culture/infection: 2009 MDRO Source:: BUTTOCK Past Surgical History: Appendectomy, Cholecystectomy, Hysterectomy, Joint Replacement Additional Past Surgical History / Comment(s): RT KNEE REPLACEMENT. Colonoscopy. Exc bilat Cataracts Past Anesthesia/Blood Transfusion Reactions: No Reported Reaction Past Psychological History: No Psychological Hx Reported Smoking Status: Never smoker Past Alcohol Use History: None Reported Past Drug Use History: None Reported - Past Family History Brother(s) Family Medical History: Cancer Additional Family Medical History / Comment(s): 3 BROTHERS HAD LUNG CA Sister(s) Family Medical History: Cancer Additional Family Medical History / Comment(s): SKIN General Exam Limitations: no limitations General appearance: alert, in no apparent distress Head exam: Present: atraumatic, normocephalic, normal inspection Eye exam: Present: normal appearance, PERRL, EOMI. Absent: scleral icterus, conjunctival injection, periorbital swelling ENT exam: Present: normal exam, mucous membranes moist Neck exam: Present: normal inspection. Absent: tenderness, meningismus, lymphadenopathy Respiratory exam: Present: normal lung sounds bilaterally. Absent: respiratory distress, wheezes, rales, rhonchi, stridor Cardiovascular Exam: Present: regular rate, normal rhythm, normal heart sounds. Absent: systolic murmur, diastolic murmur, rubs, gallop, clicks GI/Abdominal exam: Present: soft, normal bowel sounds. Absent: distended, tenderness, guarding, rebound, rigid Extremities exam: Present: normal inspection, full ROM, normal capillary refill. Absent: tenderness, pedal edema, joint swelling, calf tenderness Back exam: Present: normal inspection Neurological exam: Present: alert, oriented X3, CN II-XII intact Psychiatric exam: Present: normal affect, normal mood Skin exam: Present: warm, dry, intact, normal color. Absent: rash Course Vital Signs 02/02/24 02/02/24 21:01 22:58 Temperature 98 F 98.0 F Pulse Rate 60 65 Respiratory 20 16 Rate Blood Pressure 207/73 193/72 O2 Sat by Pulse 98 98 Oximetry - Reevaluation(s) Reevaluation #1: Medical records reviewed Reevaluation #2: Patient remains asymptomatic Reevaluation #3: Patient informed of results questions answered Reevaluation #4: Was pt. sent in by a medical professional or institution (AMBREEN Babb, GUNITE NOZZLE OPERATOR, urgent care, hospital, or shelter...) When possible be specific @ -no Did you speak to anyone other than the patient for history (EMS, parent, family, police, friend...)? What history was obtained from this source @ -no Did you review nursing and triage notes (agree or disagree)? Why? @ -agree Are old charts reviewed (outside hosp., previous admission, EMS record, old EKG, old radiological studies, urgent care reports/EKG's, shelter records)? Report findings @ -yes Differential Diagnosis (chest pain, altered mental status, abdominal pain women, abdominal pain men, vaginal bleeding, weakness, fever, dyspnea, syncope, headache, dizziness, GI bleed, back pain, seizure, CVA, palpatations, mental health, musculoskeletal)? @ -prior EKG interpreted by me (3pts min.). @ -no X-rays interpreted by me (1pt min.). @ -no CT interpreted by me (1pt min.). @ -no U/S interpreted by me (1pt. min.). @ -no What testing was considered but not performed or refused? (CT, X-rays, U/S, labs)? Why? @ -none What meds were considered but not given or refused? Why? @ -none Did you discuss the management of the patient with other professionals (professionals i.e. AMBREEN Babb, GUNITE NOZZLE OPERATOR, lab, RT, psych nurse, dialysis social worker, operational risk analyst, teacher, business enterprise officer, child support case officer)? Give summary @ -no Was smoking cessation discussed for >3mins.? @ -no Was critical care preformed (if so, how long)? @ -no Were there social determinants of health that impacted care today? How? (Homelessness, low income, unemployed, alcoholism, drug addiction, transportation, low edu. Level, literacy, decrease access to med. care, m[facility], rehab)? @ -none Was there de-escalation of care discussed even if they declined (Discuss DNR or withdrawal of care, Hospice)? DNR status @ -no What co-morbidities impacted this encounter? (DM, HTN, Smoking, COPD, CAD, Cancer, CVA, ARF, Chemo, Hep., AIDS, mental health diagnosis, sleep apnea, morbid obesity)? @ -none Was patient admitted / discharged? Hospital course, mention meds given and route, prescriptions, significant lab abnormalities, going to OR and other pertinent info. @ - 83 female to ER for blood pressure recheck. Patient of recent inpatient hospitalization regarding uncontrolled hypertension encouraged to take me dications as prescribed and will be again discharged home Discharge Undiagnosed new problem with uncertain prognosis? @ -no Drug Therapy requiring intensive monitoring for toxicity (Heparin, Nitro, I nsulin, Cardizem)? @ -no Were any procedures done? @ -no Diagnosis/symptom? @ -Hypertension Acute, or Chronic, or Acute on Chronic? @ -Acute Uncomplicated (without systemic symptoms) or Complicated (systemic symptoms)? @ -Complicated Side effects of treatment? @ -no Exacerbation, Progression, or Severe Exacerbation? @ -exacerbation Poses a threat to life or bodily function? How? (Chest pain, [place], [place], pneumonia, PE, COPD, DKA, ARF, appy, cholecystitis, CVA, Diverticulitis, Homicidal, Suicidal, threat to staff... and all critical care pts) @ -yes negative for acute disease Medical Decision Making - Medical Decision Making 83 female to ER for blood pressure recheck. Patient of recent inpatient hospitalization regarding uncontrolled hypertension encouraged to take medications as prescribed and will be again discharged home Disposition Clinical Impression: Hypertension Disposition: HOME SELF-CARE Condition: Good Instructions (If sedation given, give patient instructions): Hypertension (ED) Is patient prescribed a controlled substance at d/c from ED?: No Referrals: Isak Oneil MD [Primary Care Provider] - 1-2 days Time of Disposition: 22:30
[2024-02-02] MEDS: cloNIDine HCL 0.1 MG TAB PO STA (22:54)
[2024-02-02 23:09] VITALS: BP 193/72; PULSE 65; RESP 16; TEMP 98
== END 2024-02-02 22:59 | disposition home or self-care (01) ==
LOC: EC 20:52
DX: I10 Essential (primary) hypertension (principal); Z79.899 Other long term (current) drug therapy; Z88.2 Allergy status to sulfonamides; Z88.8 Allergy status to other drugs, medicaments and biological substances
CPT/HCPCS: 99283

== ENCOUNTER → 2025-01-25 | Outpatient (CLI) | payer MEDICARE ==
--- NOTE | 2025-01-25 10:50 | CT ---
EXAMINATION TYPE: CT chest wo con DATE OF EXAM: 01/25/2025 COMPARISON: Chest CT December 13, 2021 and older CTs CLINICAL INDICATION: Female, 84 years old with history of R91.1 SOLITARY PULMONARY NODULE, Lung nodul e. TECHNIQUE: CT scan of the thorax is performed without IV contrast. CT DLP: 165.9 mGycm. Automated Exposure Control for Dose Reduction was Utilized. FINDINGS: LUNGS: Moderate underlying emphysematous change with moderate bilateral parenchymal fibrosis and reti culation greatest in the lower lungs is redemonstrated. Stable 4 mm subpleural nodule peripheral righ t lung axial image 27. No pleural effusion or pneumothorax seen bilaterally. MEDIASTINUM: Lack of IV contrast is noted to limit evaluation for mediastinal and especially hilar ad enopathy. There are no definitive greater than 1 cm mediastinal lymph nodes. Mild cardiomegaly redemo nstrated. No pericardial effusion is seen. Severe three-vessel coronary artery calcification redemons trated. Likely coronary artery stent in the RCA distribution redemonstrated. OTHER: Exaggerated thoracic curvature with moderate multilevel anterior and lateral spurring in the m id to lower thoracic spine is redemonstrated. IMPRESSION: Moderate emphysematous and bilateral peripheral pulmonary fibrotic changes redemonstrated . Few stable tiny nodules. No suspicious new or enlarging greater than 5 mm pulmonary nodules. [facility], , 01/25/2025 10:47 AM
== END | disposition home or self-care (01) ==
LOC: RADCTMAIN 10:03
PROVIDERS: ATTEND Internal Medicine Pulmonary Disease
DX: R91.1 Solitary pulmonary nodule (principal); J84.10 Pulmonary fibrosis, unspecified; I10 Essential (primary) hypertension; E13.9 Other specified diabetes mellitus without complications; J43.9 Emphysema, unspecified
CPT/HCPCS: 71250

== ENCOUNTER → 2025-05-26 | Outpatient (CLI) | payer MEDICARE ==
--- NOTE | 2025-05-26 22:16 | US ---
EXAMINATION TYPE: US extremity nonvasc mass LT DATE OF EXAM: 05/26/2025 COMPARISON: NONE CLINICAL INDICATION: Female, 84 years old with history of D17.9 BENIGN LIPOMATOUS NEOPLASM, UNSPECIFI ED; Palpable left lateral upper thigh x years that sometimes aches. TECHNIQUE: Sonographic images taken. FINDINGS: Area of concern scanned at left upper lateral thigh. No prominent masses or lesions seen at time of scan. Tower Observer can feel palpable during scan, but unable to discern a lesion. IMPRESSION: 1. Ultrasound at the level of the palpable is negative. Clinical management recommended. [facility], , 05/26/2025 10:13 PM
== END | disposition home or self-care (01) ==
LOC: RADUSWWP 14:02
PROVIDERS: ATTEND Family Medicine
DX: D17.9 Benign lipomatous neoplasm, unspecified (principal)